=== PATIENT | male | born 1955 | race Caucasian/White ===

== ENCOUNTER → 2016-11-13 | Outpatient (CLI) | payer MEDICARE | LOC: WOUNDCARE 09:48 | PROVIDERS: ATTEND Internal Medicine | DX: E11.621 Type 2 diabetes mellitus with foot ulcer (principal); L97.522 Non-pressure chronic ulcer of other part of left foot with fat layer exposed | CPT/HCPCS: 11042; 87070; 87075; 87101; 87205 ==

== ENCOUNTER → 2016-11-20 | Outpatient (CLI) | payer MEDICARE | LOC: WOUNDCARE 07:59 | PROVIDERS: ATTEND Internal Medicine | DX: E11.621 Type 2 diabetes mellitus with foot ulcer (principal); L97.522 Non-pressure chronic ulcer of other part of left foot with fat layer exposed | CPT/HCPCS: 11042 ==

== ENCOUNTER → 2016-11-27 | Outpatient (CLI) | payer MEDICARE | LOC: WOUNDCARE 08:14 | PROVIDERS: ATTEND Internal Medicine | DX: E11.621 Type 2 diabetes mellitus with foot ulcer (principal); L97.522 Non-pressure chronic ulcer of other part of left foot with fat layer exposed | CPT/HCPCS: 99212 ==

== ENCOUNTER 2016-12-08 13:03 | Inpatient (IN) | payer OTHER, MEDICARE ==
[~2016-12-08] VITALS: Ht 180.3 cm; Wt 88.9 kg
[2016-12-08 17:08] VITALS: BP 166/85
[2016-12-08] MEDS ORDERED: INSU100I29 SQ (17:31)
[2016-12-08] MEDS ORDERED: DOXE150C PO (17:31)
[2016-12-08] MEDS ORDERED: HYDR-3820 PO (17:31)
[2016-12-08] MEDS ORDERED: TRAM50TA2 PO (17:31)
[2016-12-08] MEDS ORDERED: SIMV20TA3 PO (17:31)
[2016-12-08] MEDS ORDERED: PANT40TA3 PO (17:31)
[2016-12-08] MEDS ORDERED: METF500T4 PO (17:31)
[2016-12-08] MEDS: inSUlin ASPART (NovoLOG) 1 UNIT/0.01 ML (CHARGE PER UNIT) SC SCH (18:55)
[2016-12-08] MEDS: ALFUZOSIN HCL 10 MG TAB (UROXATRAL) PO SCH (18:57)
[2016-12-08] MEDS: metFORMIN 500 MG (GLUCOPHAGE) TAB PO SCH (18:57)
[2016-12-08] MEDS: PANTOPRAZOLE 40 MG (PROTONIX) TAB PO SCH (18:57)
[2016-12-08] MEDS: HYDROcodone/APAP 10 MG/325 MG (LORTAB) TAB PO PRN (18:59)
[2016-12-08] MEDS: METHOCARBAMOL 750 MG (ROBAXIN) TAB PO SCH (20:45)
[2016-12-08] MEDS: DOXEPIN 25 MG (SINEquan) CAP PO SCH (20:45)
[2016-12-08] MEDS ORDERED: inSUlin DETERMIR 1 UNIT/0.01 ML (LEVEMIR) CHARGE PER UNIT SQ SCH (21:00)
--- NOTE | 2016-12-09 03:47 | HISTORY AND PHYSICAL ---
DATE OF SERVICE: CHIEF COMPLAINT: Difficulty with walking. 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 He is now referred to inpatient rehabilitation unit for ongoing therapies. He presents to unit with his family. He lives in [place], [place] in a one-story home. PCP is [facility]. He reports his numbness has largely improved. He has standby assist for transfers, bed mobility, and ambulation at this point. He is utilizing hydrocodone/APAP for pain control. He is a diabetic and on insulin as well as metformin. He is on Protonix for GI prophylaxis, Robaxin for muscle spasms, Sinequan for insomnia and depression. He has been independent prior to this, but having increasing pain and numbness in his legs. PAST MEDICAL HISTORY: Diabetes mellitus. PAST SURGICAL HISTORY: As per above. ALLERGIES: No known medication allergies, although the patient reports he has increased confusion with MS Contin and OxyContin. FAMILY HISTORY: Noncontributory. SOCIAL HISTORY: Essentially as per above. REVIEW OF SYSTEMS: Ten-point review of systems significant for weakness, improved numbness in his legs. He was followed by wound care clinic here on an outpatient basis regarding an ulceration of a distal toe, which has healed. MEDICATIONS: Sinequan 100 mg p.o. each day at bedtime, Levemir insulin 80 units subcu each day at bedtime, Robaxin 750 mg p.o. q.i.d., Uroxatral 10 mg p.o. daily, hydrocodone/APAP 10/325 one tablet p.o. every 4 hours p.r.n. moderate pain, sliding scale insulin regimen A, metformin 500 mg p.o. t.i.d. with meals, and Protonix 40 mg p.o. b.i.d. PHYSICAL EXAMINATION: GENERAL APPEARANCE: Significant for a male appearing his stated age, lying in bed, in no acute distress. Alert and oriented. VITAL SIGNS: Blood pressure 166/85, respirations 20, and pulse 99. He is afebrile. O2 saturation 100% on room air. HEENT: Vision, speech, and hearing grossly intact. No oral lesion is noted. NECK: Supple without mass. HEART: Regular rhythm. LUNGS: Clear. ABDOMEN: Soft and nontender. Bowel sounds are present. EXTREMITIES: No limb edema. No calf tenderness. BACK: Incision site covered with dressing. MUSCULOSKELETAL: The patient has functional passive range of motion in all 4 extremities. NEUROLOGIC: Sensation is grossly intact to touch. Cognition is grossly intact. Strength is 5/5 in both upper limbs, 5/5 in both lower limbs at knee ext and ankle dorsiflexion .4+/5 bilateral knee flex - Indwelling schneider catheter to DD IMPRESSION: 1. Ambulatory dysfunction secondary to lumbar spinal stenosis, status post decompression. Spine surgery at [facility] on 12/02/2016. 2. Postop urinary retention with indwelling Schneider catheter at this time. 3. Insulin-dependent diabetes mellitus. PLAN: The patient will have a comprehensive program of inpatient rehabilitation with goal of maximizing level of functional independence prior to discharge home with family. The patient will have PT and OT 90 minutes per day each discipline, 5 days a week for 1 to 2 weeks for gait, strengthening, conditioning, balance, ADLs and any patient, family care, caregiver training as necessary, any adaptive equipment and training as necessary. Speech therapy to do cognitive assessment and treat as indicated. Rehabilitation Nursing to assist with bowel, Schneider catheter care, pain management, wound care, skin care, and medication administration. behavioral services tech to assist with discharge planning and community re-entry. Follow up with [facility] healthcare provider for postop care and dabetic management as needed. Follow up with his surgeon on an outpatient basis. This is a worker's comp case and he has been approved for admission by a worker's comp provider, Falguni Dalton.F/u re another trial of voiding. ESTIMATED LENGTH OF STAY: One week. PROGNOSIS: Rehab prognosis appears good. GOALS: Discharging home with family, modified independence, supervision for mobility and ADL skills. DIET: Carb consistent. CODE STATUS: Full code. Monitor Taliau-Gabby q.i.d., a.c. and at . initially. Job ID: [id number] DocumentID: [id number] Dictated Date: 12/08/2016 20:48:14 Outpatient Interviewing Clerk Date: 12/09/2016 02:08:41 Dictated By: PRACHI AMADOR MD [facility]
[2016-12-09 05:57] VITALS: BP 160/80
[2016-12-09] MEDS: inSUlin ASPART (NovoLOG) 1 UNIT/0.01 ML (CHARGE PER UNIT) SC SCH ×2 (06:12→16:11)
[2016-12-09] MEDS: PANTOPRAZOLE 40 MG (PROTONIX) TAB PO SCH ×2 (06:30→16:11)
[2016-12-09] MEDS: metFORMIN 500 MG (GLUCOPHAGE) TAB PO SCH ×3 (06:30→17:15)
[2016-12-09 07:07] LABS: BASOPHILS % (AUTO) 0 % (0-10); EOSINOPHILS # (AUTO) 0.2 10^3/uL (0.0-0.3); EOSINOPHILS % (AUTO) 2 % (0-10); LYMPHOCYTES # (AUTO) 1.4 X 10^3 (1.0-4.0); LYMPHOCYTES % (AUTO) 12 % (12-44); MEAN CORPUSCULAR HEMOGLOBIN 31 PG (25-34); MEAN CORPUSCULAR HGB CONC 34 G/DL (32-36); MEAN CORPUSCULAR VOLUME 92 FL (80-99); MEAN PLATELET VOLUME 10.5 FL (7.4-10.4); MONOCYTES # (AUTO) 1.3 X 10^3 (0.0-1.0); MONOCYTES % (AUTO) 12 % (0-12); NEUTROPHILS # (AUTO) 8.4 X 10^3 (1.8-7.8); NEUTROPHILS % (AUTO) 74 % (42-75); PLATELET COUNT 243 10^3/uL (130-400); RED BLOOD COUNT 3.78 10^6/uL (4.35-5.85); RED CELL DISTRIBUTION WIDTH 12.3 % (10.0-14.5); WHITE BLOOD COUNT 11.3 10^3/uL (4.3-11.0)
[2016-12-09 07:28] LABS: ALANINE AMINOTRANSFERASE 94 U/L (0-55); ALBUMIN 3.7 GM/DL (3.2-4.5); ANION GAP 12 MMOL/L (5-14); ASPARTATE AMINO TRANSFERASE 73 U/L (5-34); BAND NEUTROPHILS 6 %; BASOPHILS % (MANUAL) 0 %; BILIRUBIN,TOTAL 1.1 MG/DL (0.1-1.0); BLOOD UREA NITROGEN 11 MG/DL (7-18); BUN/CREATININE RATIO 16; CALCIUM 9.5 MG/DL (8.5-10.1); CARBON DIOXIDE 23 MMOL/L (21-32); CHLORIDE 99 MMOL/L (98-107); EOSINOPHILS % (MANUAL) 2 %; GFR ESTIMATED > 60; GLUCOSE 103 MG/DL (70-105); LYMPHOCYTES % (MANUAL) 19 %; MYELOCYTES % 1 %; NEUTROPHILS % (MANUAL) 59 %; POTASSIUM 3.4 MMOL/L (3.6-5.0); SODIUM 134 MMOL/L (135-145); TOTAL PROTEIN 7.4 GM/DL (6.4-8.2)
[2016-12-09] MEDS: METHOCARBAMOL 750 MG (ROBAXIN) TAB PO SCH ×4 (08:17→19:19)
[2016-12-09] MEDS: HYDROcodone/APAP 10 MG/325 MG (LORTAB) TAB PO PRN ×2 (08:17→17:16)
--- NOTE | 2016-12-09 09:02 | Physical Therapy Evaluation ---
PT Evaluation-General Medical Diagnosis Admission Date Dec 08, 2016 at 16:45 Medical Diagnosis: Lumbar spine surgery for lumbar stenosis Onset Date: Dec 02, 2016 Therapy Diagnosis Therapy Diagnosis: functional mobility impairments and weakness Height/Weight Height (Feet): 5 Height (Inches): 11.00 Weight (Pounds): 196 Weight (Ounces): 0.0 Precautions Precautions/Isolations: Fall Prevention, Standard Precautions Referral Physician: Duarte Reason for Referral: Evaluation/Treatment Medical History Pertinent Medical History: DM Current History Pt underwent lumbar spine surgery for lumbar stenosis on 12/02/16 for worsening back pain and numbness and tingling in legs. Pt admitted to rehab 12/09 to increase functional mobility and independence. Reviewed History: Yes Social History Home: Single Level Current Living Status: Alone Entry Into Home: Ramp PT Steps Into Home: 0 PT Steps Inside Home: 0 Prior/Core FIM Prior Level of Function Functional [place] Measure 0=Not Assessed/NA 4=Minimal Assistance 1=Total Assistance 5=Supervision or Setup 2=Maximal Assistance 6=Modified [place] 3=Moderate Assistance 7=Complete [place] Bed Mobility: 7 Transfers (B,C,W/C) (FIM): 7 Gait: 7 Locomotion: 7 Pt was driving short distances prior to surgery, used no assistive device. PT Evaluation-Current Subjective Pt was lying in bed prior to tx and agreeable to PT. Pt reports pain throughout back, and pt received pain medications at beginning of tx. Pt was sitting in chair with nurse call, phone, all needs met, post tx. Pain Numeric Pain Scale: 8 Location Body Site: Back Pain Description: Ache Pt/Family Goals to be independent at home Objective Patient Orientation: Normal For Age Attachments: Matta Catheter ROM/Strength ROM Lower Extremities WFL Strength Upper Extremities Network Operations Specialist strength 5/5, WFL throughout UE bilaterally. Strenght Lower Extremities Right LE (ankle dorsiflexion 5/5, knee extension 5/5, knee flexion 4+/5) Left LE (ankle dorsiflexion 5/5, knee extension 5/5, knee flexion 4+/5) Integumentary/Posture Integumentary refer to nursing note Bowel Incontinence: No Bladder Incontinence: Matta Cath Neuromuscular (Tone, Coordination, Reflexes) Not tested Sensory Vision: Functional Hearing: Functional Sensation Right Upper Extremit: Intact Sensation Left Upper Extremity: Intact Sensation Right Lower Extremit: Intact Sensation Left Lower Extremity: Intact Sensation Lower Extremities Patient has no complaints of numbness or tingling. Transfers Functional [place] Measure 0=Not Assessed/NA 4=Minimal Assistance 1=Total Assistance 5=Supervision or Setup 2=Maximal Assistance 6=Modified [place] 3=Moderate Assistance 7=Complete IndependenceIRFPAI Quality Coding Scale 6 Independent with activity with or without an assistive device 5 Patient requires set up or clean up by helper. Patient completes activity by themselves 4 Supervision or touching assist (CGA). [place] provide cues , steadying assist 3 The helper provides less than half the effort to complete the activity 2 The helper provides more than half the effort to complete the activity 1 Dependent. The helper does all the effort to complete an activity 7 Patient refused to complete or attempt activity 9 The patient did not perform the activity before the current illness or injury 88 Not attempted due to Medical conditions or safety concerns Transfers (B, C, W/C) (FIM): 3 Scootin Rollin Roll Left to Right (QC): 4 Supine to/from Sit: 5 Sit to/from Stand: 3 Sit to Lying (QC): 4 Lying to Sitting/Side of Bed(Q: 4 Sit to Stand (QC): 3 Chair/Naf-bk-Zzaws Xfer(QC): 3 Pt completes bed mobility with supervision, moves slowly due to pain, but is able to perform bed mobility by himself. Pt requires min-mod assist with sit<> stand transfer, requires more assistance with standing, but does well lowering himself slowly into chair with sitting. Pt requires verbal cues for hand placement and safety. Gait Does the Patient Walk?: Yes Mode of Locomotion: Walk Anticipated Mode of Locomotion: Walk Gait (FIM): 4 Distance (FIM): 3=150 ft Walk 10 feet (QC): 4 Walk 50 ft with 2 Turns(QC): 4 Walk 150 ft (QC): 4 Walking 10ft/uneven surface-QC: 88 (not tested due to pain and unsteadiness) Distance: 150' Gait Level of Assist: 4 Gait Persons Needed: 1 Gait Assistive Device: FWW Comments/Gait Description Pt ambulates 150' with FWW and close CGA. Pt ambulates slowly, and is unsteady throughout gait training. Wheelchair Training Does the Pt Use a Wheelchair?: No Stairs Stairs (FIM): 1 #of Steps: 1 Level of Assist: 4 1 Step (curb) (QC): 4 4 Steps (QC): 88 (not tested due to pt pain and safety) Assistive Device: Walker 12 Steps (QC): 88 (not tested due to pt pain and safety) Pt completed 1 step with FWW. Pt was unsteady with step and required min assist for safety. Balance Sitting Static: Good Sitting Dynamic: Good Standing Static: Poor Standing Dynamic: Poor Treatment Pt completed exercises in standing bar x 20 (hip flexion/extension/abduction, marching, side steps, unilateral stance) for LE functional strengthening. Assessment/Needs Pt has decreased safety endurance, activity tolerance, bed mobility, transfers, gait, and balance. Rehab Potential: Good PT Short Term Goals Short Term Goals Time Frame: Dec 16, 2016 Transfers (B,C,W/C) (FIM): 4 Gait (FIM): 5 Distance (FIM): 3=150 ft Gait Distance Comment: 250' Gait Assistive Device: FWW PT Healthcare Translator Goals Residential Goals PT Residential Goals Time Frame: Dec 30, 2016 Transfers (B,C,W/C) (FIM): 5 Sit to Lying (QC): 6 Lying-Sitting on Side/Bed(QC): 6 Sit to Stand (QC): 4 Rollin Roll Left to Right (QC): 6 Car Transfer (QC): 4 Does the Patient Walk: Yes Gait (FIM): 6 Gait distance (FIM): 3=150 ft Distance: 500' Walk 10 feet (QC): 6 Walk 10ft-Uneven Surface(QC): 4 Walk 50ft with 2 Turns (QC): 6 Walk 150 ft (QC): 6 Gait Assistive Device: FWW Stairs (FIM): 4 # of Steps: 12 1 Step (curb) (QC): 4 4 Steps (QC): 4 Stairs Level Of Assist: 4 PT Plan Problem List Problem List: Activity Tolerance, Functional Strength, Safety, Balance, Gait, Transfer, Bed Mobility Treatment/Plan Treatment Plan: Continue Plan of Care Treatment Plan: Bed Mobility, Concurrent Therapy, Education, Functional Activity Javier, Functional Strength, Group Therapy, Gait, Safety, Therapeutic Exercise, Transfers Treatment Duration: Dec 30, 2016 Frequency: At least 5 of 7 days/Wk (IRF) Estimated Hrs Per Day: 1.5 hours per day Patient and/or Family Agrees t: Yes Safety Risks/Education Patient Education: Gait Training, Transfer Techniques, Steps, Correct Positioning, Disease Process, Safety Issues Teaching Recipient: Patient Teaching Methods: Demonstration, Discussion Response to Teaching: Reinforcement Needed Discharge Recommendations Plan Patient will perform bed mobility and transfer training, balance and endurance training, functional strengthening, gait training, stair training, and education , to improve functional mobility and independence at home. Therapy D/C Recommendations: Home w/ Family Support Time/GCodes Time In: 800 Time Out: 900 Total Billed Treatment Time: 60 Total Billed Treatment 1 visit EVL 15' EX 15' FA 15' GT 15' OG LEA PT Dec 09, 2016 09:02
--- NOTE | 2016-12-09 11:49 | PM&R Post Admission Assessment ---
Post Admission Physician Asses The preadmission screen agrees with the post admission assessment that the patient is a good candidate for inpatient rehabilitation. The patient will have a comprehensive program of inpatient rehabilitation with a goal of maximizing level of functional independence prior to discharge home with spouse. The patient will have PT/OT ninety minutes per day, each discipline, five days a week for gait, strengthening, conditioning, balance, ADLs, any patient/family/caregiver training as necessary. Speech therapy to do cognitive assessment and treat as indicated. Rehabilitation nursing to assist with bowel, bladder, Matta catheter care, skin, wound care, medication administration, pain management. Gerentological Physiotherapist to assist with discharge planning, community reentry. SCD's for DVT prophylaxis. He appears to be well motivated to participate in three hours of therapy a day. He should be able to tolerate three hours of therapy a day from a medical and surgical standpoint. He should benefit from the three hours of therapy a day. He has a reasonable discharge plan, reasonable discharge rehabilitation goals and a supportive family. He has various comorbidities that need to be closely monitored with medications and treatments adjusted on a daily basis as needed. These include: Postop urinary retention DM Dysuria Barriers to discharge for this patient who had been independent prior to this are for him to be modified independent to supervision for ADLs and mobility skills prior to discharge home with spouse, so as to lessen the burden of the caregivers. Risks for this patient include: 1. Fall 2. Fracture 3. DVT 4. Pulmonary embolism 5. Wound infection 6. Skin breakdown 7. Contractures 8. Poorly controlled pain 9. RecurrentUrinary retention 10. UTI 11. Respiratory infection 12. Aspiration 13. Poorly controlled DM Estimated Length of Stay: 5-10-pyrotxef Prognosis: Rehab prognosis appears good for goal of discharge home with spouse modified independent to supervision for ADLs and mobility skills. PRACHI AMADOR MD Dec 09, 2016 11:49
--- NOTE | 2016-12-09 11:57 | PM & R (SOAP) Progress Note ---
Subjective Time Seen by Provider: 08:05 Subjective/Events-last exam Patient was seen in his room this AM Discussed case with TANYA hua this AM [facility] has decreased HS Insulin Patient c/o dysuria with Matta catheter -U/A ordered Labs noted LFTS elevated Hepatitis Panel and liver U /S ordered Serum K borderline low One dose of K ordered..Patient adjusting well to unit Patient min assist for transfers. Review of Systems Genitourinary: Dysuria Musculoskeletal: back pain Objective Exam Last Set of Vital Signs Vital Signs Date Time Temp Pulse Resp B/P (MAP) Pulse Ox O2 Delivery O2 Flow Rate FiO2 12/09/16 08:36 Room Air 12/09/16 05:57 98.5 94 18 160/80 98 Capillary Refill : Less Than 3 Seconds I&O Intake and Output 12/10/16 00:00 Intake Total 1000 ml Output Total 1150 ml Balance -150 ml Intake Oral 1000 ml Output Urine Total 1150 ml General: Alert, Oriented X3, Cooperative, No Acute Distress HEENT: Atraumatic, PERRLA, EOMI, Mucous Memb Moist/[place] Neck: Supple, No JVD Lungs: Clear to Auscultation Heart: Regular Rate Abdomen: Normal Bowel Sounds, Soft, No Tenderness Extremities: No Edema Neuro: Other (Strength 5/5 except bilateral knee flex 4+/5 Sensation grossly intact to touch) Other physical findings Matta to DD Results Lab Laboratory Tests 12/08/16 17:33: Glucometer 118H 12/09/16 05:26: Glucometer 46*L 12/09/16 05:52: Glucometer 56*L 12/09/16 06:27: Glucometer 75 12/09/16 06:52: White Blood Count 11.3H, Red Blood Count 3.78L, Hemoglobin 11.7L, Hematocrit 35L , Mean Corpuscular Volume 92, Mean Corpuscular Hemoglobin 31, Mean Corpuscular Hemoglobin Concent 34, Red Cell Distribution Width 12.3, Platelet Count 243, Mean Platelet Volume 10.5H, Neutrophils (%) (Auto) 74, Lymphocytes (%) (Auto) 12 , Monocytes (%) (Auto) 12, Eosinophils (%) (Auto) 2, Basophils (%) (Auto) 0, Neutrophils # (Auto) 8.4H, Lymphocytes # (Auto) 1.4, Monocytes # (Auto) 1.3H, Eosinophils # (Auto) 0.2, Basophils # (Auto) 0.0, Neutrophils % (Manual) 59, Lymphocytes % (Manual) 19, Monocytes % (Manual) 13, Eosinophils % (Manual) 2, Basophils % (Manual) 0, Metamyelocytes % , Myelocytes % 1, Band Neutrophils 6, Blood Morphology Comment NORMAL, Sodium Level 134L, Potassium Level 3.4L, Chloride Level 99, Carbon Dioxide Level 23, Anion Gap 12, Blood Urea Nitrogen 11 , Creatinine 0.70, Estimat Glomerular Filtration Rate > 60, BUN/Creatinine Ratio 16, Glucose Level 103, Calcium Level 9.5, Total Bilirubin 1.1H, Aspartate Amino Transf (AST/SGOT) 73H, Alanine Aminotransferase (ALT/SGPT) 94H, Alkaline Phosphatase 151H, Total Protein 7.4, Albumin 3.7 12/09/16 10:57: Glucometer 144H Assessment/Plan Assessment S/P lumbar spine surgery for lumbar spine stenosis OSH work related Postop urinary retention with dysuria U/A ordered Elevated LFTS Hepatitis pael and liver U/S ordered IDDM with episode of hypoglycemia HS insulin adjusted Borderline Hypokalemia-one dose of K replacement ordered. Plan Continue PT/OT ST to assess F/U with DR Lorenzana et al re Abnormal labs and DM management Check U/A Team Conference tomorrow 12/10/16 PRACHI AMADOR MD Dec 09, 2016 11:57
[2016-12-09 11:59] LABS: KETONES,URINE 1+ (NEGATIVE); LEUKOCYTE ESTERASE ,URINE 3+ (NEGATIVE); NITRITE,URINE POSITIVE (NEGATIVE); PH,URINE 5 (5-9); PROTEIN,URINE 3+ (NEGATIVE); UROBILINOGEN,URINE 4 MG/DL (NORMAL)
[2016-12-09] MEDS ORDERED: KCL 20 MEQ TAB (K-DUR) PO NR (12:00)
[2016-12-09 12:08] LABS: BILIRUBIN,URINE 1+ (NEGATIVE); SQUAMOUS EPITHELIAL CELL,UR RARE /HPF; WBC,URINE >100 /HPF
--- NOTE | 2016-12-09 12:56 | Diagnostic Imaging Report ---
EXAMINATION: Ultrasound of the liver. INDICATION: Elevated liver enzymes. FINDINGS: The pancreas appears unremarkable. The liver is fairly homogeneous with no focal lesion. There is hepatopetal flow seen in the portal vein. The CBD is 4 mm in caliber. The gallbladder demonstrates no stones or wall thickening. The right kidney is 12.7 cm in length with no hydronephrosis or focal lesion. No ascites or fluid collection is seen in the upper right abdomen. The sonographic Grey sign is reportedly negative. IMPRESSION: Unremarkable exam. Dictated by: Dictated on workstation # [id number]
--- NOTE | 2016-12-09 12:57 | Occupational Therapy Eval ---
OT Evaluation-General/PLF Medical Diagnosis Admission Date Dec 08, 2016 at 16:45 Medical Diagnosis: Lumbar spine surgery for lumbar stenosis Onset Date: Dec 02, 2016 Therapy Diagnosis Therapy Diagnosis: decreased self care skills Height/Weight Height (Feet): 5 Height (Inches): 11.00 Weight (Pounds): 196 Weight (Ounces): 0.0 Precautions Precautions/Isolations: Fall Prevention, Standard Precautions Safety Interventions: None Referral Physician: Duarte Medical History Pertinent Medical History: DM, GERD Additional Medical History sleep apnea, hyperlipidemia, bilateral carpal tunnel repair Current History L4-5 posterior lateral fusion, L4-5 bilateral laminectomy Social History Home: Single Level Current Living Status: Spouse Entry Into Home: Ramp Steps Into Home: 0 Steps Inside Home: 0 Pt states there will always be someone at home with him ADL-Prior Level of Function ADL PLOF Comments Pt states he was independent with ADLs and transfers. Spouse had been supervising showers recently secondary to decreased balance. Was not using any assistive devices for mobility DME/Equipment: Tub/Shower Pt states he should be getting a shower bench, FWW, and grab bars at d/c. Drive Self: Yes OT Current Status Subjective Pt sitting in chair, agrees to treatment. Would like to shower today. Pt reports 3/10 back pain. Mental Status/Objective Patient Orientation: Person, Place, Time, Situation Attachments: Matta Catheter Current Glasses/Contacts: No Hearing Aids: No Dentures/Partials: No Hand Dominance: Right Upper Extremity ROM Grossly WFL Upper Extremity Coordination Grossly WFL ADL-Treatment ADL-Current Pt sitting in chair, requests shower this morning. Sit to stand from chair with moderate assistance and cues for technique. Gait to restroom with FWW. Pt transferred to shower with minimal assistance using FWW. Doff shirt with SBA, required minimal assistance to doff shorts and manage Matta. Pt completed seated shower with increased time. Pt able to wash upper body with set up. Washes upper legs and brendon area with SBA. Pt unable to wash bilateral lower legs secondary to back precautions, but is able to wash with long handled sponge. Pt required mod assist to stand and wash buttocks. Mod assist required to transfer out of shower. RN was present to change dressing on back. Don pullover shirt with set up. Assist required to start pants over feet and to thread catheter. Stood with moderate assistance for pant hike. Pt fatigued with activity and required occasional rest breaks and increased time for functional tasks. Pt brushed hair and brushed teeth with set up while seated in chair. Pt requests to return to bed after session. Sit to supine with assist for LE. Pt in bed with needs met after session. Functional Walker Measure 0=Not Assessed/NA 4=Minimal Assistance 1=Total Assistance 5=Supervision or Setup 2=Maximal Assistance 6=Modified Walker 3=Moderate Assistance 7=Complete IndependenceIRFPAI Quality Coding Scale 6 Independent with activity with or without an assistive device 5 Patient requires set up or clean up by helper. Patient completes activity by themselves 4 Supervision or touching assist (CGA). [place] provide cues , steadying assist 3 The helper provides less than half the effort to complete the activity 2 The helper provides more than half the effort to complete the activity 1 Dependent. The helper does all the effort to complete an activity 7 Patient refused to complete or attempt activity 9 The patient did not perform the activity before the current illness or injury 88 Not attempted due to Medical conditions or safety concerns Eating (FIM): 7 (Pt reports feeding self, cutting food, and managing containers without assistance) Eating (QC): 6 Grooming (FIM): 5 Oral Hygiene (QC): 5 Bathing (FIM): 3 Shower/Bathe Self (QC): 3 Upper Body Dressing (FIM): 5 Upper Body Dressing (QC): 5 Lower Body Dressing (FIM): 3 Lower Body Dressing (QC): 3 Shower Transfer (FIM): 3 Education OT Patient Education: Rehab process Teaching Recipient: Patient Teaching Methods: Discussion Response to Teaching: Verbalize Understanding OT Short Term Goals Short Term Goals Time Frame: Dec 16, 2016 Bathing(FIM): 4 Lower Body Dressing(FIM): 4 Toileting(FIM): 4 Toilet/Commode Transfer(FIM): 5 Shower Transfer(FIM): 4 Additional Short Term Goals: 1-Demonstrate ADL Tasks, 2-Verbalize Understanding , 3-ImproveStrength/Javier 1=Demonstrate adherence to instructed precautions during ADL tasks. 2=Patient will verbalize/demonstrate understanding of assistive devices/ modifications for ADL. 3=Patient will improve strength/tolerance for activity to enable patient to perform ADL's. OT School Health Aide Goals School Health Aide Goals Time Frame: Dec 30, 2016 Eating (FIM): 7 Eating (QC): 6 Groomin Oral Hygiene (QC): 6 Bathing(FIM): 5 Shower/Bathe Self (QC): 5 Upper Body Dressing(FIM): 6 Upper Body Dressing (QC): 6 Lower Body Dressing(FIM): 5 Lower Body Dressing (QC): 5 On/Off Footwear (QC): 6 Toileting(FIM): 6 Toileting Hygiene (QC): 6 Toilet/Commode Transfer(FIM): 6 Toilet/Commode Transfer (QC): 6 Shower Transfer(FIM): 5 Additional Goals: 1-Demonstrate ADL Tasks, 2-Verbalize Understanding, 3- ImproveStrength/Javier 1=Demonstrate adherence to instructed precautions during ADL tasks. 2=Patient will verbalize/demonstrate understanding of assistive devices/ modifications for ADL. 3=Patient will improve strength/tolerance for activity to enable patient to perform ADL's. OT Education/Plan Problem List/Assessment Assessment: Decreased Activ Tolerance, Decreased UE Strength, Dependent Transfers, Impaired Self-Care Skills Pt s/p lumbar surgery with decreased mobility, ADL functioning, strength, and activity tolerance. Pt to benefit from skilled OT intervention for ADL training , transfers, strengthening, and home safety education to maximize level of function and allow safe discharge home. Discharge Recommendations Plan/Recommendations: Continue POC Treatment Plan/Plan of Care Treatment,Training & Education: Yes Patient would benefit from OT for education, treatment and training to promote independence in ADL's, mobility, safety and/or upper extremity function for ADL' s. Plan of Care: ADL Retraining, Functional Mobility, Group Exercise/Act as Ind, UE Funct Exercise/Act Treatment Duration: Dec 30, 2016 Frequency: At least 5 of 7 days/Wk (IRF) Estimated Hrs Per Day: 1.5 hours per day Agreement: Yes Rehab Potential: Good Time/GCodes Start Time: 09:30 Stop Time: 11:00 Total Time Billed (hr/min): 90 Billed Treatment Time 1 visit, EVL(15minutes), ADLx5(75minutes) AMAYA KHAN OT Dec 09, 2016 12:57
--- NOTE | 2016-12-09 14:40 | Physical Therapy Daily Note ---
PT Daily Note-Current Subjective Pt was in bed prior to tx, and agreeable to PT. Pt reports not being able to get comfortable in bed and did not sleep well last night. Pt reports 8/10 pain in back. Pt was lying in bed with nurse call, phone, all needs in reach post tx. Pain Numeric Pain Scale: 8 Location Body Site: Back Pain Description: Ache Mental Status Patient Orientation: Normal For Age Attachments: Matta Catheter Transfers Functional [place] Measure 0=Not Assessed/NA 4=Minimal Assistance 1=Total Assistance 5=Supervision or Setup 2=Maximal Assistance 6=Modified [place] 3=Moderate Assistance 7=Complete IndependenceIRFPAI Quality Coding Scale 6 Independent with activity with or without an assistive device 5 Patient requires set up or clean up by helper. Patient completes activity by themselves 4 Supervision or touching assist (CGA). [place] provide cues , steadying assist 3 The helper provides less than half the effort to complete the activity 2 The helper provides more than half the effort to complete the activity 1 Dependent. The helper does all the effort to complete an activity 7 Patient refused to complete or attempt activity 9 The patient did not perform the activity before the current illness or injury 88 Not attempted due to Medical conditions or safety concerns Transfers (B, C, W/C) (FIM): 3 Supine to/from Sit: 4 Sit to/from Stand: 3 Pt completes sit<>stand with min-mod assist and verbal cues for safety. Pt completes sit<>supine with min assist and very slowly due to pain. Gait Training Does the Patient Walk?: Yes Gait (FIM): 4 Distance (FIM): 3=150 ft Distance: 75', 150' Gait Level of Assist: 4 Gait Persons Needed: 1 Gait Assistive Device: FWW Pt ambulates with FWW and close CGA for safety with antalgic and unsteady gait. Exercises Seated Therapy Exercises: Ankle pumps, Long arc quads, Hip flexion, Hamstring Curls, Hip abd/add Seated Reps: 20 Treatments Pt completes seated exercises with theraband for resistance to increase LE strength. Pt completes gait training to increase functional mobility and independence. Assessment Current Status: Good Progress Pt has mobility impairments with gait and bed mobility, pain is the primary limiting factor with mobility. PT Short Term Goals Short Term Goals Time Frame: Dec 16, 2016 Gait (FIM): 5 Distance (FIM): 3=150 ft Gait Distance Comment: 250' Gait Assistive Device: FWW PT Usp Goals Usp Goals PT [place] House Supervisor Goals Time Frame: Dec 30, 2016 Transfers (B,C,W/C) (FIM): 5 Sit to Lying (QC): 6 Lying-Sitting on Side/Bed(QC): 6 Sit to Stand (QC): 4 Rollin Roll Left to Right (QC): 6 Car Transfer (QC): 4 Does the Patient Walk: Yes Gait (FIM): 6 Gait distance (FIM): 3=150 ft Distance: 500' Walk 10 feet (QC): 6 Walk 10ft-Uneven Surface(QC): 4 Walk 50ft with 2 Turns (QC): 6 Walk 150 ft (QC): 6 Gait Assistive Device: FWW Stairs (FIM): 4 # of Steps: 12 1 Step (curb) (QC): 4 4 Steps (QC): 4 Stairs Level Of Assist: 4 PT Plan Problem List Problem List: Activity Tolerance, Functional Strength, Safety, Balance, Gait, Transfer, Bed Mobility, ROM Treatment/Plan Treatment Plan: Continue Plan of Care Treatment Plan: Bed Mobility, Concurrent Therapy, Education, Functional Activity Javier, Functional Strength, Group Therapy, Gait, Safety, Therapeutic Exercise, Transfers Treatment Duration: Dec 30, 2016 Frequency: At least 5 of 7 days/Wk (IRF) Estimated Hrs Per Day: 1.5 hours per day Patient and/or Family Agrees t: Yes Safety Risks/Education Patient Education: Gait Training, Transfer Techniques, Reviewed Precautions, Correct Positioning, Safety Issues Teaching Recipient: Patient Teaching Methods: Demonstration, Discussion Response to Teaching: Verbalize Understanding, Reinforcement Needed Time/GCodes Time In: 1400 Time Out: 1430 Total Billed Treatment Time: 30 Total Billed Treatment 1 visit 15 GT 15 EX OG LEA PT Dec 09, 2016 14:40
[2016-12-09 17:02] VITALS: BP 164/79
[2016-12-09] MEDS ORDERED: CATHETER FLUSH 10 ML SYR IV PRN (17:15)
[2016-12-09] MEDS: ALFUZOSIN HCL 10 MG TAB (UROXATRAL) PO SCH (17:15)
--- NOTE | 2016-12-09 17:19 | Consultation (CHS) ---
HPI History of Present Illness: 61 yo male admitted to rehab after lumbar laminectomy and fusion complicated by urinary retention. His main concern at this time is burning with urination even though catheter is still in. He states he had problems with urinating even before surgery but was able to sometimes with position changes, etc. After surgery, he had retention, straight cath was done and then he had retention again so catheter was replaced. He has been having chills and sweats at night. He otherwise has no concerns. Source: patient Date seen by provider: Dec 09, 2016 Time Seen by Provider: 11:00 Attending Physician Arash Ramachandran MD PCP Neptali Mcgregor MD Consult Date of Admission Dec 08, 2016 at 4:45 pm Home Medications Home Medications Reviewed patient Home Medication Reconciliation Form Allergies Coded Allergies: No Known Allergies (Verified Allergy, Unknown, 12/08/16) [id number] Hx Patient Social History Alcohol Use: Denies Use Recreational Drug Use: No Smoking Status: Never a Smoker Recent Foreign Travel: No Contact w/other who traveled: No Recent Hopitalizations: Yes (LAMINECTOMY AND FUSION) Recent Infectious Disease Expo: No Physical Abuse Screen: No Sexual Abuse: No Past Medical History PMHx: DMII HLD GERD PSurgHx: Carpal tunnel release Vasectomy Lumbar laminectomy and fusion Family Medical History Significant Family History: Cancer, Diabetes Family History: Review of Systems ([facility]) Constitutional: chills EENTM: no symptoms reported Respiratory: No cough, No short of breath Cardiovascular: No chest pain Gastrointestinal: No abdominal pain, No constipation, No diarrhea, No nausea, No vomiting Genitourinary: see HPI Musculoskeletal: back pain Skin: no symptoms reported Psychiatric/Neurological: No Symptoms Reported Reviewed Test Results Reviewed Test Results Lab Laboratory Tests Test 12/08/16 17:33 12/09/16 05:26 12/09/16 05:52 12/09/16 06:27 Range/Units Glucometer 118 H 46 *L 56 *L 75 70-110 MG/DL Test 12/09/16 06:52 12/09/16 10:57 12/09/16 11:52 12/09/16 12:03 Range/Units White Blood Count 11.3 H 4.3-11.0 10^3/uL Red Blood Count 3.78 L 4.35-5.85 10^6/uL Hemoglobin 11.7 L 13.3-17.7 G/DL Hematocrit 35 L 40-54 % Mean Corpuscular Volume 92 80-99 FL Mean Corpuscular Hemoglobin 31 25-34 PG Mean Corpuscular Hemoglobin Concent 34 32-36 G/DL Red Cell Distribution Width 12.3 10.0-14.5 % Platelet Count 243 130-400 10^3/uL Mean Platelet Volume 10.5 H 7.4-10.4 FL Neutrophils (%) (Auto) 74 42-75 % Lymphocytes (%) (Auto) 12 12-44 % Monocytes (%) (Auto) 12 0-12 % Eosinophils (%) (Auto) 2 0-10 % Basophils (%) (Auto) 0 0-10 % Neutrophils # (Auto) 8.4 H 1.8-7.8 X 10^3 Lymphocytes # (Auto) 1.4 1.0-4.0 X 10^3 Monocytes # (Auto) 1.3 H 0.0-1.0 X 10^3 Eosinophils # (Auto) 0.2 0.0-0.3 10^3/uL Basophils # (Auto) 0.0 0.0-0.1 10^3/uL Neutrophils % (Manual) 59 % Lymphocytes % (Manual) 19 % Monocytes % (Manual) 13 % Eosinophils % (Manual) 2 % Basophils % (Manual) 0 % Metamyelocytes % % Myelocytes % 1 % Band Neutrophils 6 % Blood Morphology Comment NORMAL Sodium Level 134 L 135-145 MMOL/L Potassium Level 3.4 L 3.6-5.0 MMOL/L Chloride Level 99 98-107 MMOL/L Carbon Dioxide Level 23 21-32 MMOL/L Anion Gap 12 5-14 MMOL/L Blood Urea Nitrogen 11 7-18 MG/DL Creatinine 0.70 0.60-1.30 MG/DL Estimat Glomerular Filtration Rate > 60 BUN/Creatinine Ratio 16 Glucose Level 103 70-105 MG/DL Calcium Level 9.5 8.5-10.1 MG/DL Total Bilirubin 1.1 H 0.1-1.0 MG/DL Aspartate Amino Transf (AST/SGOT) 73 H 5-34 U/L Alanine Aminotransferase (ALT/SGPT) 94 H 0-55 U/L Alkaline Phosphatase 151 H 40-136 U/L Total Protein 7.4 6.4-8.2 GM/DL Albumin 3.7 3.2-4.5 GM/DL Glucometer 144 H 70-110 MG/DL Urine Color YELLOW Urine Clarity VERY CLOUDY H Urine pH 5 5-9 Urine Specific [place] 1.020 1.016-1.022 Urine Protein 3+ H NEGATIVE Urine Glucose (UA) 3+ H NEGATIVE Urine Ketones 1+ H NEGATIVE Urine Nitrite POSITIVE H NEGATIVE Urine Bilirubin 1+ H NEGATIVE Urine Urobilinogen 4 H NORMAL MG/DL Urine Leukocyte Esterase 3+ H NEGATIVE Urine RBC (Auto) 5+ H NEGATIVE Urine RBC 10-25 H /HPF Urine WBC >100 H /HPF Urine Squamous Epithelial Cells RARE /HPF Urine Crystals NONE /LPF Urine Bacteria LARGE H /HPF Urine Casts NONE /LPF Urine Mucus MODERATE H /LPF Urine Culture Indicated YES Test 12/09/16 16:03 Range/Units Glucometer 191 H 70-110 MG/DL Physical Exam-([facility]) Physical Exam Vital Signs VS - Last 72 Hours, by Label 12/08/16 12/08/16 12/09/16 12/09/16 17:02 17:08 05:57 08:36 Temp 98.6 98.5 Pulse 99 94 Resp 20 18 B/P (MAP) 166/85 160/80 Pulse Ox 100 100 98 O2 Delivery Room Air Room Air Room Air Room Air 12/09/16 17:02 Temp 102.1 Pulse 103 Resp 18 B/P (MAP) 164/79 Pulse Ox 97 O2 Delivery Room Air Capillary Refill : Less Than 3 Seconds General Appearance: WD/WN, no apparent distress Respiratory: lungs clear, normal breath sounds Cardiovascular: regular rate, rhythm, no edema, no murmur Gastrointestinal: normal bowel sounds, non tender, soft Neurologic/Psychiatric: alert, normal mood/affect Skin: normal color, warm/dry Assessment/Plan Assessment/Plan Admission Dx s/p lumbar laminectomy and fusion DMII HLD Elevated LFTs Leukocytosis Urinary retention with indwelling schneider Plan s/p lumbar laminectomy and fusion- managed by inpatient rehab and [place] surgeon DMII- resume home medications, diabetic diet. Decreased home insulin to 40 units levemir for tonight given low blood sugar this am and reports he is eating less than usual HLD- hold home statin due to elevated LFTs Elevated LFTs- unknown etiology and apparently new, check hepatitis panel and liver US Leukocytosis- currently afebrile and with normal vital signs, possibly post- operative reaction, monitor Urinary retention with indwelling schneider- on alfuzosin, now with dysuria, check UA Diagnosis/Problems: Clinical Quality Measures DVT/VTE Risk/Contraindication: Risk Factor Score Per Nursin RFS Level Per Nursing on Admit: 4+=Very High JULISSA VU MD Dec 09, 2016 5:19 pm
[2016-12-09 18:00] LABS: BASOPHILS % (AUTO) 0 % (0-10); EOSINOPHILS # (AUTO) 0.2 10^3/uL (0.0-0.3); EOSINOPHILS % (AUTO) 2 % (0-10); LYMPHOCYTES # (AUTO) 1.9 X 10^3 (1.0-4.0); LYMPHOCYTES % (AUTO) 15 % (12-44); MEAN CORPUSCULAR HEMOGLOBIN 31 PG (25-34); MEAN CORPUSCULAR HGB CONC 33 G/DL (32-36); MEAN CORPUSCULAR VOLUME 93 FL (80-99); MEAN PLATELET VOLUME 10.9 FL (7.4-10.4); MONOCYTES # (AUTO) 1.6 X 10^3 (0.0-1.0); MONOCYTES % (AUTO) 12 % (0-12); NEUTROPHILS # (AUTO) 9.3 X 10^3 (1.8-7.8); NEUTROPHILS % (AUTO) 71 % (42-75); PLATELET COUNT 264 10^3/uL (130-400); RED BLOOD COUNT 3.67 10^6/uL (4.35-5.85); RED CELL DISTRIBUTION WIDTH 12.5 % (10.0-14.5); WHITE BLOOD COUNT 13.1 10^3/uL (4.3-11.0)
[2016-12-09 18:13] VITALS: BP 150/73
[2016-12-09] MEDS: cefTRIAXone INJECTION 1,000 MG in NS (IVPB) 50 ML IV SCH (18:28)
[2016-12-09] MEDS ORDERED: IBUPROFEN 600 MG (MOTRIN) TAB PO PRN (18:45)
[2016-12-09] MEDS: NS IV 1000 ML 1,000 ML IV SCH ×2 (18:59→23:19)
[2016-12-09] MEDS: CATHETER FLUSH 10 ML SYR IV SCH (19:11)
[2016-12-09] MEDS: DOXEPIN 25 MG (SINEquan) CAP PO SCH (19:19)
[2016-12-09] MEDS: inSUlin DETERMIR 1 UNIT/0.01 ML (LEVEMIR) CHARGE PER UNIT SQ SCH (19:20)
[2016-12-10 00:49] LABS: BASOPHILS % (AUTO) 0 % (0-10); EOSINOPHILS # (AUTO) 0.3 10^3/uL (0.0-0.3); EOSINOPHILS % (AUTO) 3 % (0-10); LYMPHOCYTES % (AUTO) 19 % (12-44); MEAN CORPUSCULAR HEMOGLOBIN 31 PG (25-34); MEAN CORPUSCULAR HGB CONC 33 G/DL (32-36); MEAN CORPUSCULAR VOLUME 93 FL (80-99); MONOCYTES # (AUTO) 1.4 X 10^3 (0.0-1.0); MONOCYTES % (AUTO) 14 % (0-12); NEUTROPHILS # (AUTO) 6.8 X 10^3 (1.8-7.8); NEUTROPHILS % (AUTO) 64 % (42-75); PLATELET COUNT 235 10^3/uL (130-400); RED CELL DISTRIBUTION WIDTH 12.4 % (10.0-14.5); WHITE BLOOD COUNT 10.6 10^3/uL (4.3-11.0)
[2016-12-10 01:13] LABS: ALANINE AMINOTRANSFERASE 83 U/L (0-55); ALBUMIN 3.1 GM/DL (3.2-4.5); ANION GAP 9 MMOL/L (5-14); ASPARTATE AMINO TRANSFERASE 62 U/L (5-34); BILIRUBIN,TOTAL 0.8 MG/DL (0.1-1.0); BLOOD UREA NITROGEN 12 MG/DL (7-18); BUN/CREATININE RATIO 16; CALCIUM 8.4 MG/DL (8.5-10.1); CARBON DIOXIDE 22 MMOL/L (21-32); CHLORIDE 106 MMOL/L (98-107); CREATININE SERUM 0.74 MG/DL (0.60-1.30); GFR ESTIMATED > 60; GLUCOSE 206 MG/DL (70-105); POTASSIUM 3.8 MMOL/L (3.6-5.0); SODIUM 137 MMOL/L (135-145); TOTAL PROTEIN 6.4 GM/DL (6.4-8.2)
[2016-12-10] MEDS: NS IV 1000 ML 1,000 ML IV SCH ×4 (02:47→13:20)
[2016-12-10 05:10] VITALS: BP 163/76
[2016-12-10] MEDS: CATHETER FLUSH 10 ML SYR IV SCH ×3 (05:46→20:04)
[2016-12-10] MEDS: metFORMIN 500 MG (GLUCOPHAGE) TAB PO SCH ×3 (05:50→17:03)
[2016-12-10] MEDS: PANTOPRAZOLE 40 MG (PROTONIX) TAB PO SCH ×2 (05:50→17:03)
[2016-12-10] MEDS: inSUlin ASPART (NovoLOG) 1 UNIT/0.01 ML (CHARGE PER UNIT) SC SCH ×2 (05:51→17:02)
--- NOTE | 2016-12-10 08:56 | Physical Therapy Daily Note ---
PT Daily Note-Current Subjective Pt. states he has trouble with the hours here of first responder. States he was always a night owl. States he had trouble sleeping b/c he had IV last night. States his back pain is 2/10, but his incision is sensitive Pain Numeric Pain Scale: 2 Location: Lower Location Body Site: Back Pain Description: Burning Mental Status Patient Orientation: Normal For Age Transfers Functional [place] Measure 0=Not Assessed/NA 4=Minimal Assistance 1=Total Assistance 5=Supervision or Setup 2=Maximal Assistance 6=Modified [place] 3=Moderate Assistance 7=Complete IndependenceIRFPAI Quality Coding Scale 6 Independent with activity with or without an assistive device 5 Patient requires set up or clean up by helper. Patient completes activity by themselves 4 Supervision or touching assist (CGA). [place] provide cues , steadying assist 3 The helper provides less than half the effort to complete the activity 2 The helper provides more than half the effort to complete the activity 1 Dependent. The helper does all the effort to complete an activity 7 Patient refused to complete or attempt activity 9 The patient did not perform the activity before the current illness or injury 88 Not attempted due to Medical conditions or safety concerns Transfers (B, C, W/C) (FIM): 3 Scootin Rollin Supine to/from Sit: 5 Sit to/from Stand: 3 pt. TRFs sit to stand from very high surfaces CGA and uses FWW to pull himself up, but standard heights require mod to max assist Gait Training Does the Patient Walk?: Yes Gait (FIM): 4 Distance (FIM): 3=150 ft Gait Level of Assist: 4 Gait Persons Needed: 1 Gait Assistive Device: FWW heavy wt bearing on FWW, toe out narrow DAVID at heels, knees slightly bent. Exercises Seated Therapy Exercises: Ankle pumps, Sit to stand, Long arc quads, Hip flexion Seated Reps: 15 (sit to stand perches from high low challenging pt. to stand at levels just challenging enough) Standing: Hip Abduction, Hamstring curls, Heel/toe raises, Marching, Side steps Standing Reps: 15 Treatments pt. unable to tolerate Nustep or supine therex. Pt. did TRF sit to R side but was unable to roll to back or left side secondary to pain. Pt. was educated in use of recline chair brandon for head,trunk portion back and how to get comfortable in chair and that sitting will improve pts health and strength Assessment Current Status: Good Progress PT Short Term Goals Short Term Goals Time Frame: Dec 16, 2016 Gait (FIM): 5 Distance (FIM): 3=150 ft Gait Distance Comment: 250' Gait Assistive Device: FWW PT Batch Trucker Goals Batch Trucker Goals PT Batch Trucker Goals Time Frame: Dec 30, 2016 Transfers (B,C,W/C) (FIM): 5 Sit to Lying (QC): 6 Lying-Sitting on Side/Bed(QC): 6 Sit to Stand (QC): 4 Rollin Roll Left to Right (QC): 6 Car Transfer (QC): 4 Does the Patient Walk: Yes Gait (FIM): 6 Gait distance (FIM): 3=150 ft Distance: 500' Walk 10 feet (QC): 6 Walk 10ft-Uneven Surface(QC): 4 Walk 50ft with 2 Turns (QC): 6 Walk 150 ft (QC): 6 Gait Assistive Device: FWW Stairs (FIM): 4 # of Steps: 12 1 Step (curb) (QC): 4 4 Steps (QC): 4 Stairs Level Of Assist: 4 PT Plan Treatment/Plan Treatment Plan: Continue Plan of Care Treatment Plan: Bed Mobility, Concurrent Therapy, Education, Functional Activity Javier, Functional Strength, Group Therapy, Gait, Safety, Therapeutic Exercise, Transfers Treatment Duration: Dec 30, 2016 Frequency: At least 5 of 7 days/Wk (IRF) Estimated Hrs Per Day: 1.5 hours per day Patient and/or Family Agrees t: Yes Safety Risks/Education Patient Education: Gait Training, Transfer Techniques, Correct Positioning, Disease Process, Safety Issues Teaching Recipient: Patient, Primary Caregiver Teaching Methods: Discussion Response to Teaching: Verbalize Understanding, Return Demonstration, Reinforcement Needed Time/GCodes Time In: 800 Time Out: 900 Total Billed Treatment Time: 60 Total Billed Treatment 1,FA20m, EX25m,GT15m CRISTIAN NIELSEN SIGNALS ANALYST Dec 10, 2016 08:56
[2016-12-10] MEDS: METHOCARBAMOL 750 MG (ROBAXIN) TAB PO SCH ×4 (09:24→20:01)
--- NOTE | 2016-12-10 09:28 | ST Cognitive Linguistic Eval ---
Speech Evaluation-General Medical Diagnosis Lumbar spine surgery for lumbar stenosis Onset Date: Dec 02, 2016 Therapy Diagnosis Therapy Diagnosis: Cognitive Linguistic Skills WNL Precautions Precautions/Isolations: Fall Prevention, Standard Precautions Referral Referring Physician: Dr. Arash Ramachandran Reason for Referral: Evaluation/Treatment Cognitive Linguistic Evaluation Medical History Pertinent Medical History: DM, GERD Reviewed History: Yes Social History Current Living Status: Spouse Speech PLF-Current Status Prior Level of Function The patient denied prior challenges with speech, language, or cognition. Subjective The patient was recently admitted to [facility] following lumbar spine surgery. The patient greeted the clinician appropriately and was agreeable to participation in the cognitive evaluation. Pain Numeric Pain Scale: 2 Location Body Site: Hip Comment: The patient did not describe the pain for the clinician. Language Eval: Auditory Comprehends Simple Yes/No Ques: Functional Indent/Objects Multiple [place]: Functional Ident/Pics in Multiple [place]: Functional Follows 1-Step Commands: Functional Follows Complex Directions: Functional Follows General Conversations: Functional Language Eval: Verbal Language Completes Spontaneous Greeting: Functional Produces Auto, Serial Info: Functional Imitates Simple Words/Phrases: Functional Word Finding: Functional Requests Basic Needs: Functional States Basic Personal Info: Functional Expresses Complex Ideas: Functional Cognitive Patient Orientation The patient was independently oriented to month, day of week, date, and year. Objective Cognitive Domain Attention: WNL Memory: WNL Problem Solving: Functional Executive Functions: WNL Objective Impression The patient displayed cognitive linguistic skills within normal limits and appropriate for completion of ADL's. Communication/Social Cognition Comprehension: 6 Expression: 6 Social Interaction: 6 Problem Solvin Memory: 6 Speech Patient Assess Expression of Ideas/Wants: Expression (4) Understanding [place] Content: Understands (4) Brief Interview-Mental Status: Yes Repetition of Three Words: Three (3) Temporal Orientation: Year: Correct (3) Temporal Orientation: Month: Accurate within 5 days(2) Temporal Orientation: Day: Correct (1) Recall : Wear to say "Sock": Yes, no cue required (2) Recall : Color: Yes, no cue required (2) Recall : Bed: Yes,after cueing (1) Speech-Plan Treatment Plan Speech Therapy Treatment Plan: Discontinue ST Evaluation, only. Frequency: Modified Program (IRF) (Evaluation, only.) Estimated Hrs Per Day: Other (Evaluation, only.) Rehab Potential: Good Safety Risks/Education Teaching Recipient: Patient Teaching Methods: Discussion Response to Teaching: Verbalize Understanding Education Topics Provided: Results, Plan of Care, Recommendations Time Speech Therapy Time In: 09:00 Speech Therapy Time Out: 09:15 Total Billed Time: 15 Billed Treatment Time 1, JONES AGUIRRE Dec 10, 2016 09:27
--- NOTE | 2016-12-10 10:19 | PM & R (SOAP) Progress Note ---
Subjective Time Seen by Provider: 08:05 Subjective/Events-last exam Patient was seen in his room this AM Patient min assist for transfers and gait with FWW Patient voiding with [place] out patient with fever spike associated with elevated Lactic acid and UTI Patient on IV antibiotics.Hepatitis B screen Negative. Objective Exam Last Set of Vital Signs Vital Signs Date Time Temp Pulse Resp B/P (MAP) Pulse Ox O2 Delivery O2 Flow Rate FiO2 12/10/16 05:10 100.0 106 18 163/76 98 Room Air Capillary Refill : Less Than 3 Seconds I&O Intake and Output 12/11/16 00:00 Intake Total 2100 ml Output Total 2500 ml Balance -400 ml Intake Oral 1100 ml IV Total 1000 ml Output Urine Total 2500 ml General: Alert, Oriented X3, Cooperative, No Acute Distress HEENT: Atraumatic, PERRLA, EOMI, Mucous Memb Moist/[place] Neck: Supple, No JVD Lungs: Clear to Auscultation Heart: Regular Rate Abdomen: Normal Bowel Sounds, Soft, No Tenderness Extremities: No Edema Neuro: Other (Strength 5/5 except bilateral knee flex 4+/5 Sensation grossly intact to touch) Results Lab Laboratory Tests 12/08/16 17:33: Glucometer 118H 12/09/16 05:26: Glucometer 46*L 12/09/16 05:52: Glucometer 56*L 12/09/16 06:27: Glucometer 75 12/09/16 06:52: White Blood Count 11.3H, Red Blood Count 3.78L, Hemoglobin 11.7L, Hematocrit 35L , Mean Corpuscular Volume 92, Mean Corpuscular Hemoglobin 31, Mean Corpuscular Hemoglobin Concent 34, Red Cell Distribution Width 12.3, Platelet Count 243, Mean Platelet Volume 10.5H, Neutrophils (%) (Auto) 74, Lymphocytes (%) (Auto) 12 , Monocytes (%) (Auto) 12, Eosinophils (%) (Auto) 2, Basophils (%) (Auto) 0, Neutrophils # (Auto) 8.4H, Lymphocytes # (Auto) 1.4, Monocytes # (Auto) 1.3H, Eosinophils # (Auto) 0.2, Basophils # (Auto) 0.0, Neutrophils % (Manual) 59, Lymphocytes % (Manual) 19, Monocytes % (Manual) 13, Eosinophils % (Manual) 2, Basophils % (Manual) 0, Metamyelocytes % , Myelocytes % 1, Band Neutrophils 6, Blood Morphology Comment NORMAL, Sodium Level 134L, Potassium Level 3.4L, Chloride Level 99, Carbon Dioxide Level 23, Anion Gap 12, Blood Urea Nitrogen 11 , Creatinine 0.70, Estimat Glomerular Filtration Rate > 60, BUN/Creatinine Ratio 16, Glucose Level 103, Calcium Level 9.5, Total Bilirubin 1.1H, Aspartate Amino Transf (AST/SGOT) 73H, Alanine Aminotransferase (ALT/SGPT) 94H, Alkaline Phosphatase 151H, Total Protein 7.4, Albumin 3.7 12/09/16 10:57: Glucometer 144H 12/09/16 11:52: Urine Color YELLOW, Urine Clarity VERY CLOUDYH, Urine pH 5, Urine Specific [place] 1.020, Urine Protein 3+H, Urine Glucose (UA) 3+H, Urine Ketones 1+H, Urine Nitrite POSITIVEH, Urine Bilirubin 1+H, Urine Urobilinogen 4H, Urine Leukocyte Esterase 3+H, Urine RBC (Auto) 5+H, Urine RBC 10-25H, Urine WBC >100H , Urine Squamous Epithelial Cells RARE, Urine Crystals NONE, Urine Bacteria LARGEH, Urine Casts NONE, Urine Mucus MODERATEH, Urine Culture Indicated YES 12/09/16 12:03: Hepatitis A IgM Antibody Non-Reactive, Hepatitis B Surface Antigen Non-Reactive , Hepatitis B Core IgM Antibody Non-Reactive, Hepatitis C Antibody Non-Reactive 12/09/16 16:03: Glucometer 191H 12/09/16 17:25: White Blood Count 13.1H, Red Blood Count 3.67L, Hemoglobin 11.3L, Hematocrit 34L , Mean Corpuscular Volume 93, Mean Corpuscular Hemoglobin 31, Mean Corpuscular Hemoglobin Concent 33, Red Cell Distribution Width 12.5, Platelet Count 264, Mean Platelet Volume 10.9H, Neutrophils (%) (Auto) 71, Lymphocytes (%) (Auto) 15 , Monocytes (%) (Auto) 12, Eosinophils (%) (Auto) 2, Basophils (%) (Auto) 0, Neutrophils # (Auto) 9.3H, Lymphocytes # (Auto) 1.9, Monocytes # (Auto) 1.6H, Eosinophils # (Auto) 0.2, Basophils # (Auto) 0.0, Lactic Acid Level 3.16*H 12/09/16 19:40: Lactic Acid Level 2.27*H 12/09/16 22:20: Lactic Acid Level 2.17*H 12/10/16 00:42: White Blood Count 10.6, Red Blood Count 3.40L, Hemoglobin 10.5L, Hematocrit 32L , Mean Corpuscular Volume 93, Mean Corpuscular Hemoglobin 31, Mean Corpuscular Hemoglobin Concent 33, Red Cell Distribution Width 12.4, Platelet Count 235, Mean Platelet Volume 10.0, Neutrophils (%) (Auto) 64, Lymphocytes (%) (Auto) 19 , Monocytes (%) (Auto) 14H, Eosinophils (%) (Auto) 3, Basophils (%) (Auto) 0, Neutrophils # (Auto) 6.8, Lymphocytes # (Auto) 2.0, Monocytes # (Auto) 1.4H, Eosinophils # (Auto) 0.3, Basophils # (Auto) 0.0, Sodium Level 137, Potassium Level 3.8, Chloride Level 106, Carbon Dioxide Level 22, Anion Gap 9, Blood Urea Nitrogen 12, Creatinine 0.74, Estimat Glomerular Filtration Rate > 60, BUN/ Creatinine Ratio 16, Glucose Level 206H, Lactic Acid Level 2.80*H, Calcium Level 8.4L, Total Bilirubin 0.8, Aspartate Amino Transf (AST/SGOT) 62H, Alanine Aminotransferase (ALT/SGPT) 83H, Alkaline Phosphatase 132, Total Protein 6.4, Albumin 3.1L 12/10/16 05:50: Glucometer 91 12/10/16 05:52: Lactic Acid Level 1.45 Microbiology 12/09/16 Urine Culture - Preliminary, Resulted Gram Negative [place] Assessment/Plan Assessment S/P lumbar spine surgery for lumbar spine stenosis OSH work related UTI on iv antibiotics Elevated LFTS Hepatitis panel and liver U/S ordered-negative IDDM with episode of hypoglycemia HS insulin adjusted Borderline Hypokalemia-one dose of K replacement ordered-done. Plan Continue PT/OT ST to assess F/U with DR Lorenzana et al re Abnormal labs and DM management and UTI/ fever Team Conference later today 12/10/16-See report for full functional update and POC and PRACHI CHOWDHURY MD Dec 10, 2016 10:19
[2016-12-10] MEDS: HYDROcodone/APAP 10 MG/325 MG (LORTAB) TAB PO PRN (12:06)
--- NOTE | 2016-12-10 13:09 | Occupational Ther Daily Note ---
OT Current Status-Daily Note Subjective Pt sitting in chair, agrees to treatment. Pt reports 2/10 back pain. Mental Status/Objective Functional [place] Measure 0=Not Assessed/NA 4=Minimal Assistance 1=Total Assistance 5=Supervision or Setup 2=Maximal Assistance 6=Modified [place] 3=Moderate Assistance 7=Complete [place] ADL-Treatment Pt requests to shower this morning. Sit to stand from chair with CGA. Gait to restroom with FWW. Pt demonstrated ability to perform transfer to BS over toilet with minimal assistance. Transfer to shower bench in walk in shower with minimal assistance. Pt used sales operations analyst to doff socks and shorts. Upper body bathing completed with set up. Pt able to wash lower body using long handled sponge for lower feet and legs. Assist to wash buttocks. RN present to change dressing after shower. Don pullover shirt with set up. Pt used sales operations analyst to start shorts over feet. Stood with minimal assistance for pant hike. Assist required to don FINN hose. Pt stood at sink for grooming tasks. Pt brushed teeth and combed hair with SBA while standing. Pt requested to return to bed after session. Sit to supine with minimal assistance. Pt in bed with needs met and spouse present after session. Functional [place] Measure 0=Not Assessed/NA 4=Minimal Assistance 1=Total Assistance 5=Supervision or Setup 2=Maximal Assistance 6=Modified [place] 3=Moderate Assistance 7=Complete IndependenceIRFPAI Quality Coding Scale 6 Independent with activity with or without an assistive device 5 Patient requires set up or clean up by helper. Patient completes activity by themselves 4 Supervision or touching assist (CGA). [place] provide cues , steadying assist 3 The helper provides less than half the effort to complete the activity 2 The helper provides more than half the effort to complete the activity 1 Dependent. The helper does all the effort to complete an activity 7 Patient refused to complete or attempt activity 9 The patient did not perform the activity before the current illness or injury 88 Not attempted due to Medical conditions or safety concerns Grooming (FIM): 5 Oral Hygiene (QC): 4 Bathing (FIM): 4 Shower/Bathe Self (QC): 3 Upper Body (FIM): 5 Upper Body Dressing (QC): 5 Lower Body Dressing (FIM): 4 Lower Body Dressing (QC): 3 On/Off Footwear (QC): 3 Toilet/Commode Transfer (FIM): 4 Shower Transfer(FIM): 4 Education OT Patient Education: Modified ADL techniques Teaching Recipient: Patient Teaching Methods: Discussion Response to Teaching: Verbalize Understanding OT Short Term Goals Short Term Goals Time Frame: Dec 16, 2016 Bathing(FIM): 4 Lower Body Dressing(FIM): 4 Toileting(FIM): 4 Toilet/Commode Transfer(FIM): 5 Shower Transfer(FIM): 4 Additional Short Term Goals: 1-Demonstrate ADL Tasks, 2-Verbalize Understanding , 3-ImproveStrength/Javier 1=Demonstrate adherence to instructed precautions during ADL tasks. 2=Patient will verbalize/demonstrate understanding of assistive devices/ modifications for ADL. 3=Patient will improve strength/tolerance for activity to enable patient to perform ADL's. OT Assisted Goals Orchid Transplanter Goals Time Frame: Dec 30, 2016 Eating (FIM): 7 Eating (QC): 6 Groomin Oral Hygiene (QC): 6 Bathing(FIM): 5 Shower/Bathe Self (QC): 5 Upper Body Dressing(FIM): 6 Upper Body Dressing (QC): 6 Lower Body Dressing(FIM): 5 Lower Body Dressing (QC): 5 On/Off Footwear (QC): 6 Toileting(FIM): 6 Toileting Hygiene (QC): 6 Toilet/Commode Transfer(FIM): 6 Toilet/Commode Transfer (QC): 6 Shower Transfer(FIM): 5 Additional Goals: 1-Demonstrate ADL Tasks, 2-Verbalize Understanding, 3- ImproveStrength/Javier 1=Demonstrate adherence to instructed precautions during ADL tasks. 2=Patient will verbalize/demonstrate understanding of assistive devices/ modifications for ADL. 3=Patient will improve strength/tolerance for activity to enable patient to perform ADL's. OT Education/Plan Problem List/Assessment Pt s/p lumbar surgery with decreased mobility, ADL functioning, strength, and activity tolerance. Pt to benefit from skilled OT intervention for ADL training , transfers, strengthening, and home safety education to maximize level of function and allow safe discharge home. Discharge Recommendations Plan/Recommendations: Continue POC Treatment Plan/Plan of Care Patient would benefit from OT for education, treatment and training to promote independence in ADL's, mobility, safety and/or upper extremity function for ADL' s. Plan of Care: ADL Retraining, Functional Mobility, Group Exercise/Act as Ind, UE Funct Exercise/Act Treatment Duration: Dec 30, 2016 Frequency: At least 5 of 7 days/Wk (IRF) Estimated Hrs Per Day: 1.5 hours per day Agreement: Yes Rehab Potential: Good Time/GCodes Start Time: 09:15 Stop Time: 10:15 Total Time Billed (hr/min): 60 Billed Treatment Time 1 visit, ADLx4(60minutes) AMAYA KHAN OT Dec 10, 2016 13:09
--- NOTE | 2016-12-10 13:12 | Occupational Ther Daily Note ---
OT Current Status-Daily Note Subjective Pt in bed, agrees to treatment. Mental Status/Objective Functional [place] Measure 0=Not Assessed/NA 4=Minimal Assistance 1=Total Assistance 5=Supervision or Setup 2=Maximal Assistance 6=Modified [place] 3=Moderate Assistance 7=Complete [place] ADL-Treatment Pt supine to sit with SBA and increased time. Pt donned robe with set up. Transfer to [facility] over toilet with minimal assistance. Pt able to pull pants down and complete hygiene, but requires minimal assistance for standing balance during pant hike. Stood at sink to wash hands with SBA. Gait to shower room with FWW. Pt states he will be getting a transfer bench when he goes home. Education provided regarding safe transfers into tub/shower using bench. Pt demonstrated ability to perform transfer with minimal assistance and verbal cues. Pt returned to room and transferred to recliner chair with minimal assistance. Pt sitting in chair with needs met after session. Functional [place] Measure 0=Not Assessed/NA 4=Minimal Assistance 1=Total Assistance 5=Supervision or Setup 2=Maximal Assistance 6=Modified [place] 3=Moderate Assistance 7=Complete IndependenceIRFPAI Quality Coding Scale 6 Independent with activity with or without an assistive device 5 Patient requires set up or clean up by helper. Patient completes activity by themselves 4 Supervision or touching assist (CGA). [place] provide cues , steadying assist 3 The helper provides less than half the effort to complete the activity 2 The helper provides more than half the effort to complete the activity 1 Dependent. The helper does all the effort to complete an activity 7 Patient refused to complete or attempt activity 9 The patient did not perform the activity before the current illness or injury 88 Not attempted due to Medical conditions or safety concerns Toileting (FIM): 4 Toileting Hygiene (QC): 3 Toilet/Commode Transfer (FIM): 4 Toilet Transfer (QC): 3 Education OT Patient Education: Transfer techniques Teaching Recipient: Patient Teaching Methods: Demonstration, Discussion Response to Teaching: Verbalize Understanding OT Short Term Goals Short Term Goals Time Frame: Dec 16, 2016 Bathing(FIM): 4 Lower Body Dressing(FIM): 4 Toileting(FIM): 4 Toilet/Commode Transfer(FIM): 5 Shower Transfer(FIM): 4 Additional Short Term Goals: 1-Demonstrate ADL Tasks, 2-Verbalize Understanding , 3-ImproveStrength/Javier 1=Demonstrate adherence to instructed precautions during ADL tasks. 2=Patient will verbalize/demonstrate understanding of assistive devices/ modifications for ADL. 3=Patient will improve strength/tolerance for activity to enable patient to perform ADL's. OT Central Lab Technician Goals Shelter Goals Time Frame: Dec 30, 2016 Eating (FIM): 7 Eating (QC): 6 Groomin Oral Hygiene (QC): 6 Bathing(FIM): 5 Shower/Bathe Self (QC): 5 Upper Body Dressing(FIM): 6 Upper Body Dressing (QC): 6 Lower Body Dressing(FIM): 5 Lower Body Dressing (QC): 5 On/Off Footwear (QC): 6 Toileting(FIM): 6 Toileting Hygiene (QC): 6 Toilet/Commode Transfer(FIM): 6 Toilet/Commode Transfer (QC): 6 Shower Transfer(FIM): 5 Additional Goals: 1-Demonstrate ADL Tasks, 2-Verbalize Understanding, 3- ImproveStrength/[place] 1=Demonstrate adherence to instructed precautions during ADL tasks. 2=Patient will verbalize/demonstrate understanding of assistive devices/ modifications for ADL. 3=Patient will improve strength/tolerance for activity to enable patient to perform ADL's. OT Education/Plan Problem List/Assessment Pt s/p lumbar surgery with decreased mobility, ADL functioning, strength, and activity tolerance. Pt to benefit from skilled OT intervention for ADL training , transfers, strengthening, and home safety education to maximize level of function and allow safe discharge home. Discharge Recommendations Plan/Recommendations: Continue POC Treatment Plan/Plan of Care Patient would benefit from OT for education, treatment and training to promote independence in ADL's, mobility, safety and/or upper extremity function for ADL' s. Plan of Care: ADL Retraining, Functional Mobility, Group Exercise/Act as Ind, UE Funct Exercise/Act Treatment Duration: Dec 30, 2016 Frequency: At least 5 of 7 days/Wk (IRF) Estimated Hrs Per Day: 1.5 hours per day Agreement: Yes Rehab Potential: Good Time/GCodes Start Time: 11:30 Stop Time: 12:00 Total Time Billed (hr/min): 30 Billed Treatment Time 1 visit, ADLx2(30minutes) AMAYA KHAN OT Dec 10, 2016 13:12
--- NOTE | 2016-12-10 13:23 | Physical Therapy Daily Note ---
PT Daily Note-Current Subjective Pt. and present. Pt. and both state they are ready for him to come home. Pt. states he has a very gentle incline ramp inside his garage. states pt. has a very high/tall bed. Pt. c/o he is very fatigued and his back pain is escalating after a bathroom trip just earlier Pain Numeric Pain Scale: 4 Location: Lower Location Body Site: Back Pain Description: Ache Mental Status Patient Orientation: Normal For Age Transfers Functional [place] Measure 0=Not Assessed/NA 4=Minimal Assistance 1=Total Assistance 5=Supervision or Setup 2=Maximal Assistance 6=Modified [place] 3=Moderate Assistance 7=Complete IndependenceIRFPAI Quality Coding Scale 6 Independent with activity with or without an assistive device 5 Patient requires set up or clean up by helper. Patient completes activity by themselves 4 Supervision or touching assist (CGA). [place] provide cues , steadying assist 3 The helper provides less than half the effort to complete the activity 2 The helper provides more than half the effort to complete the activity 1 Dependent. The helper does all the effort to complete an activity 7 Patient refused to complete or attempt activity 9 The patient did not perform the activity before the current illness or injury 88 Not attempted due to Medical conditions or safety concerns sup to sit to right simulating pts. situation at home all SBA PT Short Term Goals Short Term Goals Time Frame: Dec 16, 2016 Gait (FIM): 5 Distance (FIM): 3=150 ft Gait Distance Comment: 250' Gait Assistive Device: FWW PT Sales Representative Electric Service Goals Sales Representative Electric Service Goals PT Usp Goals Time Frame: Dec 30, 2016 Transfers (B,C,W/C) (FIM): 5 Sit to Lying (QC): 6 Lying-Sitting on Side/Bed(QC): 6 Sit to Stand (QC): 4 Rollin Roll Left to Right (QC): 6 Car Transfer (QC): 4 Does the Patient Walk: Yes Gait (FIM): 6 Gait distance (FIM): 3=150 ft Distance: 500' Walk 10 feet (QC): 6 Walk 10ft-Uneven Surface(QC): 4 Walk 50ft with 2 Turns (QC): 6 Walk 150 ft (QC): 6 Gait Assistive Device: FWW Stairs (FIM): 4 # of Steps: 12 1 Step (curb) (QC): 4 4 Steps (QC): 4 Stairs Level Of Assist: 4 PT Plan Treatment/Plan Treatment Plan: Continue Plan of Care Treatment Plan: Bed Mobility, Concurrent Therapy, Education, Functional Activity Javier, Functional Strength, Group Therapy, Gait, Safety, Therapeutic Exercise, Transfers Treatment Duration: Dec 30, 2016 Frequency: At least 5 of 7 days/Wk (IRF) Estimated Hrs Per Day: 1.5 hours per day Patient and/or Family Agrees t: Yes Time/GCodes Time In: 1300 Time Out: 1325 Total Billed Treatment Time: 25 Total Billed Treatment 1,FA10m,EX15m G Codes Necessary: CRISTIAN Stern PHOTOGRAPHIC MACHINE OPERATOR Dec 10, 2016 13:23
--- NOTE | 2016-12-10 14:02 | Progress Note (SOAP) ---
Subjective Subjective/Events-last exam Noted yesterday afternoon to be febrile, blood cultures drawn and labs updated which revealed lactic acidosis, resolved after two liters of NS bolus overnight. Remains febrile but with decreasing temperature. Able to urinate well after removal of catheter. Review of Systems Date Seen by Provider: Dec 10, 2016 Time Seen by Provider: 10:43 Objective Exam Last Set of Vital Signs Vital Signs Date Time Temp Pulse Resp B/P (MAP) Pulse Ox O2 Delivery O2 Flow Rate FiO2 12/10/16 09:00 Room Air 12/10/16 05:10 100.0 106 18 163/76 98 Capillary Refill : Less Than 3 Seconds I&O Intake and Output 12/11/16 00:00 Intake Total 2100 ml Output Total 2500 ml Balance -400 ml Intake Oral 1100 ml IV Total 1000 ml Output Urine Total 2500 ml General: Alert, No Acute Distress Lungs: Clear to Auscultation, Normal Air Movement Heart: Regular Rate, No Murmurs Neuro: Normal Speech Psych/Mental Status: Mood NL Results/Procedures Lab Laboratory Tests 12/09/16 16:03: Glucometer 191H 12/09/16 17:25: White Blood Count 13.1H, Red Blood Count 3.67L, Hemoglobin 11.3L, Hematocrit 34L , Mean Corpuscular Volume 93, Mean Corpuscular Hemoglobin 31, Mean Corpuscular Hemoglobin Concent 33, Red Cell Distribution Width 12.5, Platelet Count 264, Mean Platelet Volume 10.9H, Neutrophils (%) (Auto) 71, Lymphocytes (%) (Auto) 15 , Monocytes (%) (Auto) 12, Eosinophils (%) (Auto) 2, Basophils (%) (Auto) 0, Neutrophils # (Auto) 9.3H, Lymphocytes # (Auto) 1.9, Monocytes # (Auto) 1.6H, Eosinophils # (Auto) 0.2, Basophils # (Auto) 0.0, Lactic Acid Level 3.16*H 12/09/16 19:40: Lactic Acid Level 2.27*H 12/09/16 22:20: Lactic Acid Level 2.17*H 12/10/16 00:42: White Blood Count 10.6, Red Blood Count 3.40L, Hemoglobin 10.5L, Hematocrit 32L , Mean Corpuscular Volume 93, Mean Corpuscular Hemoglobin 31, Mean Corpuscular Hemoglobin Concent 33, Red Cell Distribution Width 12.4, Platelet Count 235, Mean Platelet Volume 10.0, Neutrophils (%) (Auto) 64, Lymphocytes (%) (Auto) 19 , Monocytes (%) (Auto) 14H, Eosinophils (%) (Auto) 3, Basophils (%) (Auto) 0, Neutrophils # (Auto) 6.8, Lymphocytes # (Auto) 2.0, Monocytes # (Auto) 1.4H, Eosinophils # (Auto) 0.3, Basophils # (Auto) 0.0, Sodium Level 137, Potassium Level 3.8, Chloride Level 106, Carbon Dioxide Level 22, Anion Gap 9, Blood Urea Nitrogen 12, Creatinine 0.74, Estimat Glomerular Filtration Rate > 60, BUN/ Creatinine Ratio 16, Glucose Level 206H, Lactic Acid Level 2.80*H, Calcium Level 8.4L, Total Bilirubin 0.8, Aspartate Amino Transf (AST/SGOT) 62H, Alanine Aminotransferase (ALT/SGPT) 83H, Alkaline Phosphatase 132, Total Protein 6.4, Albumin 3.1L 12/10/16 05:50: Glucometer 91 12/10/16 05:52: Lactic Acid Level 1.45 Microbiology 12/09/16 Urine Culture - Preliminary, Resulted Gram Negative [place] Assessment/Plan Assessment/Plan Admission Dx s/p lumbar laminectomy and fusion DMII HLD Elevated LFTs Leukocytosis Urinary retention with indwelling schneider Plan s/p lumbar laminectomy and fusion- managed by inpatient rehab and [facility] surgeon DMII- resume home medications, diabetic diet. Decreased home insulin to 40 units levemir given low blood sugar this am and reports he is eating less than usual HLD- hold home statin due to elevated LFTs Elevated LFTs- unknown etiology and apparently new, hepatitis panel negative and liver US unremarkable, monitor Leukocytosis- currently afebrile and with normal vital signs, possibly post- operative reaction, monitor Urinary retention with indwelling schneider- on alfuzosin, now with dysuria, check UA 12/10- removed catheter yesterday afternoon due to infection, able to urinate well so far, monitor closely UTI with sepsis- leukocytosis, fever and elevated lactic acid. Blood culture pending. Urine with gram negative gerson. Continue ceftriaxone. Lactic acidosis resolved with fluid overnight. Diagnosis/Problems: Clinical Quality Measures DVT/VTE Risk/Contraindication: Risk Factor Score Per Nursin RFS Level Per Nursing on Admit: 4+=Very High JULISSA VU MD Dec 10, 2016 2:02 pm
[2016-12-10] MEDS: MUPIROCIN 2% OINT 22 GM (BACTROBAN) TUBE TOP SCH ×2 (14:59→20:03)
--- NOTE | 2016-12-10 16:57 | Individualized Plan of Care ---
Individualized Plan of Care Rehab Nursing IPOC Order Admission Date Dec 08, 2016 at 16:45 Current Orders Orders Admission (Physician Order) (12/08/16 16:45) Admission Arrival Bed Request (12/08/16 16:45) Ambulate TID (12/08/16 16:57) Dvt/Vte Risk - Notifiy Physici (12/08/16 16:57) Admission-Acute Rehab Unit (12/08/16 16:52) Vital Signs: Routine 08,16,00 (12/08/16 16:52) Sequential Compression Device 08,20 (12/08/16 16:52) Insemination Worker-Inpt Rehab (12/08/16 16:52) Rehab Nursing Orders-Ipoc (12/08/16 16:52) Physical Therapy Rehab Orders (12/08/16 16:52) Occupational Therapy Rehab Ord (12/08/16 16:52) Speech Therapy Rehab Orders (12/08/16 16:52) Intake & Output 06,14,22 (12/08/16 16:52) Precautions (Aru) (12/08/16 16:52) Weekly Weight (Lbs) WEEK (12/08/16 16:52) Cbc With Automated Diff (12/09/16 06:00) Comprehensive Metabolic Panel (12/09/16 06:00) Consult Physician (12/08/16 17:00) Accucheck Bid DBID (12/08/16 17:02) Doxepin Capsule (Sinequan Capsule) (12/08/16 21:00) Hydrocodone/Apap 10/325 Tablet (Lortab 1 (12/08/16 17:15) Insulin Determir (Per Unit) (Levemir (Pe (12/08/16 21:00) Metformin Tablet (Glucophage Tablet) (12/08/16 17:14) Methocarbamol Tablet (Robaxin Tablet) (12/08/16 21:00) Pantoprazole Tablet (Protonix Tablet) (12/08/16 17:13) Alfuzosin Tablet (Uroxatral Tablet) (12/08/16 18:00) Insulin Aspart (Novolog) (Novolog (Charg (12/08/16 17:14) Cho 60g/M 1snack (16-2000 Pradeep) (12/08/16 Dinner) Manual Differential (12/09/16 06:52) Insulin Determir (Per Unit) (Levemir (Pe (12/09/16 21:00) Ua Culture If Indicated (12/09/16 11:54) Hepatitis Panel Acute (12/09/16 11:31) Us Hepatic (Liver)53254 (12/09/16 11:31) Potassium Chloride (Tablet) (K Dur Table (12/09/16 12:00) Urine Culture (12/09/16 11:52) Catheter(Urinary) Discontinue (12/09/16 13:48) Patient Visit (12/09/16 ) Pt Eval Low Complexity (12/09/16 ) Gait Training, Ea 15 Min (12/09/16 ) Exercise Therap, Ea 15 Min (12/09/16 ) Functional Activities, Ea 15 (12/09/16 ) Patient Visit (12/09/16 ) Exercise Therap, Ea 15 Min (12/09/16 ) Gait Training, Ea 15 Min (12/09/16 ) Cbc With Automated Diff (12/09/16 17:01) Lactic Acid Analyzer (12/09/16 17:01) Blood Culture (12/09/16 17:01) Blood Culture (12/09/16 17:05) Ceftriaxone Injection (Rocephin Injectio (12/09/16 17:15) Sodium Chloride Flush (Catheter Flush Sy (12/09/16 22:00) Sodium Chloride Flush (Catheter Flush Sy (12/09/16 17:15) Ns Iv 1000 Ml (Sodium Chloride 0.9%) (12/09/16 20:00) Ibuprofen Tablet (Motrin Tablet) (12/09/16 18:45) Lactic Acid Analyzer (12/09/16 21:40) Cbc With Automated Diff (12/10/16 06:00) Comprehensive Metabolic Panel (12/10/16 06:00) Lactic Acid Analyzer (12/10/16 05:00) Ns Iv 1000 Ml (Sodium Chloride 0.9%) (12/10/16 01:15) Patient Visit (12/10/16 ) Speech Sound Lang Comp (12/10/16 ) Mupirocin Ointment (Bactroban Ointment (12/10/16 11:15) Cbc With Automated Diff (12/11/16 06:00) Comprehensive Metabolic Panel (12/11/16 06:00) Patient Visit (12/10/16 ) Gait Training, Ea 15 Min (12/10/16 ) Functional Activities, Ea 15 (12/10/16 ) Exercise Therap, Ea 15 Min (12/10/16 ) Rehab Nursing Orders: Diseage Management, Edu in Press Rel Techn, Hydration Management, Nutrition Management, Pain Management Other Nursing Orders: Monitor for urinary retention or wosening signs or symptoms of current UTI Intensity of Therapy to be met Patient to be seen: Min.3h per day/5 of 7d PT IPOC Problem List: Activity Tolerance, Functional Strength, Safety, Balance, Gait, Transfer, Bed Mobility, ROM Treatment Plan: Continue Plan of Care Bed Mobility, Concurrent Therapy, Education, Functional Activity Javier, Functional Strength, Group Therapy, Gait, Safety, Therapeutic Exercise, Transfers Treatment Duration: Dec 30, 2016 Frequency: At least 5 of 7 days/Wk (IRF) Estimated Hrs Per Day: 1.5 hours per day OT IPOC Problems: Decreased Activ Tolerance, Decreased UE Strength, Dependent Transfers , Impaired Self-Care Skills OT Treatment, Training and Edu: Yes OT Problems Pt s/p lumbar surgery with decreased mobility, ADL functioning, strength, and activity tolerance. Pt to benefit from skilled OT intervention for ADL training , transfers, strengthening, and home safety education to maximize level of function and allow safe discharge home. Plan of Care: ADL Retraining, Functional Mobility, Group Exercise/Act as Ind, UE Funct Exercise/Act Treatment Duration: Dec 30, 2016 Frequency: At least 5 of 7 days/Wk (IRF) Estimated Hrs Per Day: 1.[address] IPOC Speech Therapy Treatment Plan: Discontinue ST Treatment Duration: Dec 09, 2016 Frequency: Modified Program (IRF) (Evaluation, only.) Estimated Hrs Per Day: Other (Evaluation, only.) Insemination Worker/Case Mgmt Insemination Worker/Case Managemen: Discharge Planning, Patient/Family Counseling Physician IPOC Medical Issues being managed closely and that require the 24 hour availability of a physician: UTI Urinary retention DM Medical Issues: Bowel/Bladder Function, DVT Prophylaxis, Falls Precautions, Fluid/Electrolyte/Nutrition Balance, Infection Protection, Pain Management, Wound Care, Other (List) (as per above) Brief Synthesis of Preadmission Screen, Post-Admission Evaluation, and Therapy Evaluations:61 yo male who had work related Lumbar spinal stenosis treated surgically at [facility] and referred here for rehab Has postop UTI with elevated Lactic acid and on IV antibiotics PMH DM had been Independent prior to this and living with his Girlfriend Medical Prognosis: good Anticipated Length of Stay: 12-13-16 Rehab Goals Modified Independent for adls and mobility skills Anticipated discharge destinat: Home with [facility] and girlfriend PRACHI AMADOR MD Dec 10, 2016 16:57
[2016-12-10] MEDS: ALFUZOSIN HCL 10 MG TAB (UROXATRAL) PO SCH (17:02)
[2016-12-10] MEDS: cefTRIAXone INJECTION 1,000 MG in NS (IVPB) 50 ML IV SCH (17:03)
[2016-12-10 17:46] VITALS: BP 154/73
[2016-12-10] MEDS: inSUlin DETERMIR 1 UNIT/0.01 ML (LEVEMIR) CHARGE PER UNIT SQ SCH (20:01)
[2016-12-10] MEDS: DOXEPIN 25 MG (SINEquan) CAP PO SCH (20:01)
[2016-12-11] MEDS: inSUlin ASPART (NovoLOG) 1 UNIT/0.01 ML (CHARGE PER UNIT) SC SCH ×2 (05:16→16:52)
[2016-12-11 05:28] VITALS: BP 136/76
[2016-12-11] MEDS: PANTOPRAZOLE 40 MG (PROTONIX) TAB PO SCH ×2 (06:17→16:40)
[2016-12-11] MEDS: CATHETER FLUSH 10 ML SYR IV SCH ×3 (06:17→21:09)
[2016-12-11] MEDS: metFORMIN 500 MG (GLUCOPHAGE) TAB PO SCH ×3 (06:17→16:40)
[2016-12-11 07:17] LABS: BASOPHILS % (AUTO) 0 % (0-10); EOSINOPHILS # (AUTO) 0.5 10^3/uL (0.0-0.3); EOSINOPHILS % (AUTO) 4 % (0-10); LYMPHOCYTES # (AUTO) 2.1 X 10^3 (1.0-4.0); LYMPHOCYTES % (AUTO) 16 % (12-44); MEAN CORPUSCULAR HEMOGLOBIN 31 PG (25-34); MEAN CORPUSCULAR HGB CONC 33 G/DL (32-36); MEAN CORPUSCULAR VOLUME 93 FL (80-99); MEAN PLATELET VOLUME 10.6 FL (7.4-10.4); MONOCYTES # (AUTO) 1.2 X 10^3 (0.0-1.0); MONOCYTES % (AUTO) 9 % (0-12); NEUTROPHILS # (AUTO) 8.9 X 10^3 (1.8-7.8); NEUTROPHILS % (AUTO) 70 % (42-75); PLATELET COUNT 265 10^3/uL (130-400); RED BLOOD COUNT 3.86 10^6/uL (4.35-5.85); RED CELL DISTRIBUTION WIDTH 12.3 % (10.0-14.5); WHITE BLOOD COUNT 12.7 10^3/uL (4.3-11.0)
[2016-12-11 07:38] LABS: ALANINE AMINOTRANSFERASE 84 U/L (0-55); ALBUMIN 3.7 GM/DL (3.2-4.5); ANION GAP 11 MMOL/L (5-14); ASPARTATE AMINO TRANSFERASE 62 U/L (5-34); BLOOD UREA NITROGEN 10 MG/DL (7-18); BUN/CREATININE RATIO 15; CALCIUM 9.3 MG/DL (8.5-10.1); CARBON DIOXIDE 22 MMOL/L (21-32); CHLORIDE 104 MMOL/L (98-107); CREATININE SERUM 0.67 MG/DL (0.60-1.30); GFR ESTIMATED > 60; GLUCOSE 90 MG/DL (70-105); POTASSIUM 3.5 MMOL/L (3.6-5.0); SODIUM 137 MMOL/L (135-145); TOTAL PROTEIN 7.7 GM/DL (6.4-8.2)
[2016-12-11] MEDS: METHOCARBAMOL 750 MG (ROBAXIN) TAB PO SCH ×4 (08:45→21:02)
[2016-12-11] MEDS: HYDROcodone/APAP 10 MG/325 MG (LORTAB) TAB PO PRN ×3 (08:45→23:17)
[2016-12-11] MEDS ORDERED: KCL 20 MEQ TAB (K-DUR) PO NR (09:00)
[2016-12-11] MEDS: MUPIROCIN 2% OINT 22 GM (BACTROBAN) TUBE TOP SCH ×2 (09:39→21:02)
--- NOTE | 2016-12-11 11:25 | Occupational Ther Daily Note ---
OT Current Status-Daily Note Subjective Pt seen in room, up in bed, agreeable to OT. No pain mentioned. Appearance Alert, cooperative Mental Status/Objective Functional [place] Measure 0=Not Assessed/NA 4=Minimal Assistance 1=Total Assistance 5=Supervision or Setup 2=Maximal Assistance 6=Modified [place] 3=Moderate Assistance 7=Complete [place] ADL-Treatment Pt was able to move from supine to sit EOB without assistance. He needed just a little help to stand from EOB and cues for hand placement. He walked CGA, FWW to bathroom and transferred on and off shower bench with min assist (lifting help), using grab bars. He walked back to sit EOB to don socks, with setup. Functional [place] Measure 0=Not Assessed/NA 4=Minimal Assistance 1=Total Assistance 5=Supervision or Setup 2=Maximal Assistance 6=Modified [place] 3=Moderate Assistance 7=Complete IndependenceIRFPAI Quality Coding Scale 6 Independent with activity with or without an assistive device 5 Patient requires set up or clean up by helper. Patient completes activity by themselves 4 Supervision or touching assist (CGA). [place] provide cues , steadying assist 3 The helper provides less than half the effort to complete the activity 2 The helper provides more than half the effort to complete the activity 1 Dependent. The helper does all the effort to complete an activity 7 Patient refused to complete or attempt activity 9 The patient did not perform the activity before the current illness or injury 88 Not attempted due to Medical conditions or safety concerns Grooming (FIM): 4 (CGA, FWW for balance, standing at sink to brush hair. Washed face and hands in shower) Bathing (FIM): 5 (Washed and dried all parts with setup, using long handled brush. Shower bench, grab bars, hand held shower. ) Upper Body (FIM): 5 (Setup) Lower Body Dressing (FIM): 4 (Sat EOB to don socks with no AD needed. Able to get socks off as well. Pt educ to sit to put pants onrather than stand to step into them. Min assist sit to stand and then CGA, FWW to pull pants up. ) Shower Transfer(FIM): 4 (Min assist to get off shower bench, using grab bars and FWW.) Other Treatment Once seated at EOB, pt was able to do 10 reps 5 different bilat UE exercises with red (medium resistance) theraband. Pt educ on the different exercises, with demonstration or verbal instructions. Return demo, occas further educ to do exercise correctly. To strengthen arms to help with transfers and standing/ ambulation during ADLs. Pt left up in bed, all needs met. Education OT Patient Education: Exercise program, Modified ADL techniques, Purpose of tx/ functional activities, Safety issues, Transfer techniques Teaching Recipient: Patient Teaching Methods: Demonstration, Discussion Response to Teaching: Verbalize Understanding, Return Demonstration, Reinforcement Needed OT Short Term Goals Short Term Goals Time Frame: Dec 16, 2016 Bathing(FIM): 4 Lower Body Dressing(FIM): 4 Toileting(FIM): 4 Toilet/Commode Transfer(FIM): 5 Shower Transfer(FIM): 4 Additional Short Term Goals: 1-Demonstrate ADL Tasks, 2-Verbalize Understanding , 3-ImproveStrength/Javier 1=Demonstrate adherence to instructed precautions during ADL tasks. 2=Patient will verbalize/demonstrate understanding of assistive devices/ modifications for ADL. 3=Patient will improve strength/tolerance for activity to enable patient to perform ADL's. OT Usp Goals Director Of Accounting Goals Time Frame: Dec 30, 2016 Eating (FIM): 7 Eating (QC): 6 Groomin Oral Hygiene (QC): 6 Bathing(FIM): 5 Shower/Bathe Self (QC): 5 Upper Body Dressing(FIM): 6 Upper Body Dressing (QC): 6 Lower Body Dressing(FIM): 5 Lower Body Dressing (QC): 5 On/Off Footwear (QC): 6 Toileting(FIM): 6 Toileting Hygiene (QC): 6 Toilet/Commode Transfer(FIM): 6 Toilet/Commode Transfer (QC): 6 Shower Transfer(FIM): 5 Additional Goals: 1-Demonstrate ADL Tasks, 2-Verbalize Understanding, 3- ImproveStrength/Javier 1=Demonstrate adherence to instructed precautions during ADL tasks. 2=Patient will verbalize/demonstrate understanding of assistive devices/ modifications for ADL. 3=Patient will improve strength/tolerance for activity to enable patient to perform ADL's. OT Education/Plan Problem List/Assessment Pt s/p lumbar surgery with decreased mobility, ADL functioning, strength, and activity tolerance. Pt to benefit from skilled OT intervention for ADL training , transfers, strengthening, and home safety education to maximize level of function and allow safe discharge home. Discharge Recommendations Plan/Recommendations: Continue POC Treatment Plan/Plan of Care Patient would benefit from OT for education, treatment and training to promote independence in ADL's, mobility, safety and/or upper extremity function for ADL' s. Plan of Care: ADL Retraining, Functional Mobility, Group Exercise/Act as Ind, UE Funct Exercise/Act Treatment Duration: Dec 30, 2016 Frequency: At least 5 of 7 days/Wk (IRF) Estimated Hrs Per Day: 1.5 hours per day Agreement: Yes Rehab Potential: Good Time/GCodes Start Time: 09:00 Stop Time: 10:00 Total Time Billed (hr/min): 60 Billed Treatment Time visit, 50 minutes ADL, 10 minutes exercise SHABNAM WOODSON OT Dec 11, 2016 11:25
--- NOTE | 2016-12-11 11:29 | Physical Therapy Daily Note ---
PT Daily Note-Current Subjective Pt is laying Supine in bed upon arrival. Pt agrees to PT. Pain Numeric Pain Scale: 5-Moderate Pain Location Body Site: Back Pain Description: Ache Mental Status Patient Orientation: Person, Place, Situation Transfers Functional [place] Measure 0=Not Assessed/NA 4=Minimal Assistance 1=Total Assistance 5=Supervision or Setup 2=Maximal Assistance 6=Modified [place] 3=Moderate Assistance 7=Complete IndependenceIRFPAI Quality Coding Scale 6 Independent with activity with or without an assistive device 5 Patient requires set up or clean up by helper. Patient completes activity by themselves 4 Supervision or touching assist (CGA). [place] provide cues , steadying assist 3 The helper provides less than half the effort to complete the activity 2 The helper provides more than half the effort to complete the activity 1 Dependent. The helper does all the effort to complete an activity 7 Patient refused to complete or attempt activity 9 The patient did not perform the activity before the current illness or injury 88 Not attempted due to Medical conditions or safety concerns Scootin Rollin Supine to/from Sit: 5 Sit to/from Stand: 5 Sit to Stand (QC): 5 Weight Bearing Weight Bearing Restriction: Full Weight Bearing Location Restriction: LE Bilateral Gait Training Does the Patient Walk?: Yes Distance (FIM): 3=150 ft Distance: 300' Walk 10 feet (QC): 5 Walk 50 ft with 2 Turns(QC): 5 Walk 150 ft (QC): 5 Gait Level of Assist: 5 Gait Persons Needed: 1 Gait Assistive Device: FWW Pt walks with normalized gait using FWW at close SBA. Pt fatigues and needs rest break after walk. Wheelchair Training Does the Pt Use a Wheelchair?: Yes Wheelchair Distance: 3=150 ft Distance: 150' Wheelchair Level of Assist: 5 Wheel 50 ft with 2 turns (QC): 5 Wheel 150 ft (QC): 5 Type of Wheelchair: Manual Pt only used [facility] due to distance from [facility] to outside ramp to practice for home. Exercises Seated Therapy Exercises: Ankle pumps, Hip flexion, Kicking activity Seated Reps: 15 Treatments Pt transferred from Supine to EOB to standing at SBA using FWW to stand. Pt used restroom previous to leaving room to practice ramp for home. Pt propelled WC as far as he could then PT took over. Pt ambulated ramp x2 before resting then ambulated again before resting in [facility]. Pt returned to room to rest and change bandage on back before OT. Pt resting in bed at end of tx with all needs left and OT to tx shortly. Assessment Current Status: Good Progress Pt fatigues after walking ramp and needs rest. Pt will have to monitor activity tolerance during tx and at home to safely complete activities so pt doesn't over do it. PT Short Term Goals Short Term Goals Time Frame: Dec 16, 2016 Gait (FIM): 5 Distance (FIM): 3=150 ft Gait Distance Comment: 250' Gait Assistive Device: FWW PT Mcc Goals Mcc Goals PT Marketing Research Intern Goals Time Frame: Dec 30, 2016 Transfers (B,C,W/C) (FIM): 5 Sit to Lying (QC): 6 Lying-Sitting on Side/Bed(QC): 6 Sit to Stand (QC): 4 Rollin Roll Left to Right (QC): 6 Car Transfer (QC): 4 Does the Patient Walk: Yes Gait (FIM): 6 Gait distance (FIM): 3=150 ft Distance: 500' Walk 10 feet (QC): 6 Walk 10ft-Uneven Surface(QC): 4 Walk 50ft with 2 Turns (QC): 6 Walk 150 ft (QC): 6 Gait Assistive Device: FWW Stairs (FIM): 4 # of Steps: 12 1 Step (curb) (QC): 4 4 Steps (QC): 4 Stairs Level Of Assist: 4 PT Plan Problem List Problem List: Activity Tolerance, Safety, Gait Treatment/Plan Treatment Plan: Continue Plan of Care Treatment Plan: Bed Mobility, Concurrent Therapy, Education, Functional Activity Javier, Functional Strength, Group Therapy, Gait, Safety, Therapeutic Exercise, Transfers Treatment Duration: Dec 30, 2016 Frequency: At least 5 of 7 days/Wk (IRF) Estimated Hrs Per Day: 1.5 hours per day Patient and/or Family Agrees t: Yes Safety Risks/Education Patient Education: Gait Training, Transfer Techniques, Correct Positioning, Safety Issues Teaching Recipient: Patient Teaching Methods: Discussion Response to Teaching: Verbalize Understanding Time/GCodes Time In: 805 Time Out: 905 Total Billed Treatment Time: 60 Total Billed Treatment visit, FA x2 (30m), [facility] (15m) & GT (15m) YOLANDA MENDOZA PTA Dec 11, 2016 11:29
--- NOTE | 2016-12-11 11:59 | Progress Note (SOAP) ---
Subjective Subjective/Events-last exam Afebrile last 24 hours. Reports still urinating without difficulty. No more chills/sweats. Review of Systems Date Seen by Provider: Dec 11, 2016 Time Seen by Provider: 10:30 Objective Exam Last Set of Vital Signs Vital Signs Date Time Temp Pulse Resp B/P (MAP) Pulse Ox O2 Delivery O2 Flow Rate FiO2 12/11/16 09:04 Room Air 12/11/16 05:28 98.7 102 18 136/76 96 Capillary Refill : Less Than 3 Seconds I&O Intake and Output 12/12/16 00:00 Intake Total 300 ml Balance 300 ml Intake Oral 300 ml # Voids 3 # Bowel Movements 2 General: Alert, No Acute Distress Lungs: Clear to Auscultation, Normal Air Movement Heart: Regular Rate, No Murmurs Abdomen: Normal Bowel Sounds, Soft Neuro: Normal Speech Psych/Mental Status: Mood NL Results/Procedures Lab Laboratory Tests 12/10/16 16:53: Glucometer 204H 12/10/16 21:12: Glucometer 191H 12/11/16 05:04: Glucometer 92 12/11/16 06:54: White Blood Count 12.7H, Red Blood Count 3.86L, Hemoglobin 11.8L, Hematocrit 36L , Mean Corpuscular Volume 93, Mean Corpuscular Hemoglobin 31, Mean Corpuscular Hemoglobin Concent 33, Red Cell Distribution Width 12.3, Platelet Count 265, Mean Platelet Volume 10.6H, Neutrophils (%) (Auto) 70, Lymphocytes (%) (Auto) 16 , Monocytes (%) (Auto) 9, Eosinophils (%) (Auto) 4, Basophils (%) (Auto) 0, Neutrophils # (Auto) 8.9H, Lymphocytes # (Auto) 2.1, Monocytes # (Auto) 1.2H, Eosinophils # (Auto) 0.5H, Basophils # (Auto) 0.0, Sodium Level 137, Potassium Level 3.5L, Chloride Level 104, Carbon Dioxide Level 22, Anion Gap 11, Blood Urea Nitrogen 10, Creatinine 0.67, Estimat Glomerular Filtration Rate > 60, BUN/ Creatinine Ratio 15, Glucose Level 90, Calcium Level 9.3, Total Bilirubin 1.0, Aspartate Amino Transf (AST/SGOT) 62H, Alanine Aminotransferase (ALT/SGPT) 84H, Alkaline Phosphatase 128, Total Protein 7.7, Albumin 3.7 Microbiology 9/19/17 Blood Culture - Preliminary, Resulted No growth 12/09/16 Urine Culture - Preliminary, Resulted Escherichia Coli Assessment/Plan Assessment/Plan Admission Dx s/p lumbar laminectomy and fusion DMII HLD Elevated LFTs Leukocytosis Urinary retention with indwelling schneider Plan s/p lumbar laminectomy and fusion- managed by inpatient rehab and [place] surgeon DMII- resume home medications, diabetic diet. Decreased home insulin to 40 units levemir given low blood sugar this am and reports he is eating less than usual HLD- hold home statin due to elevated LFTs Elevated LFTs- unknown etiology and apparently new, hepatitis panel negative and liver US unremarkable, monitor Leukocytosis- currently afebrile and with normal vital signs, possibly post- operative reaction, monitor Urinary retention with indwelling schneider- on alfuzosin, now with dysuria, check UA 12/10- removed catheter yesterday afternoon due to infection, able to urinate well so far, monitor closely UTI with sepsis- leukocytosis, fever and elevated lactic acid. Blood culture pending. Urine with gram negative ousmane. Continue ceftriaxone. Lactic acidosis resolved with fluid overnight. 12/11- fever resolved, urine culture with E coli sensitive to ceftriaxone. Will plan to finish 7 day course with cephalexin 500 mg BID on d/c if discharged before 7 days of therapy. Diagnosis/Problems: Clinical Quality Measures DVT/VTE Risk/Contraindication: Risk Factor Score Per Nursin RFS Level Per Nursing on Admit: 4+=Very High JULISSA VU MD Dec 11, 2016 11:59 am
--- NOTE | 2016-12-11 13:00 | Occupational Ther Daily Note ---
OT Current Status-Daily Note Subjective Pt seen in room, up in bed, agreeable to OT. No pain mentioned. Appearance Alert, cooperative Mental Status/Objective Functional [place] Measure 0=Not Assessed/NA 4=Minimal Assistance 1=Total Assistance 5=Supervision or Setup 2=Maximal Assistance 6=Modified [place] 3=Moderate Assistance 7=Complete [place] ADL-Treatment Functional [place] Measure 0=Not Assessed/NA 4=Minimal Assistance 1=Total Assistance 5=Supervision or Setup 2=Maximal Assistance 6=Modified [place] 3=Moderate Assistance 7=Complete IndependenceIRFPAI Quality Coding Scale 6 Independent with activity with or without an assistive device 5 Patient requires set up or clean up by helper. Patient completes activity by themselves 4 Supervision or touching assist (CGA). [place] provide cues , steadying assist 3 The helper provides less than half the effort to complete the activity 2 The helper provides more than half the effort to complete the activity 1 Dependent. The helper does all the effort to complete an activity 7 Patient refused to complete or attempt activity 9 The patient did not perform the activity before the current illness or injury 88 Not attempted due to Medical conditions or safety concerns Other Treatment Pt needed min assist and two trials to stand from sitting EOB, FWW. He found a technique that worked well and tried it later, getting up out of chair with arms with only CGA, FWW. Pt walked to gym with CGA, FWW. Once seated, did 12 minutes bilat UE exercise with arm bike set at 15W resistance, working at steady pace and with no c/o pain. Strengthening to help with transfers and ADLs. Pt walked back to room, CGA, FWW. Got on and off tall toilet with close SBA, using grab bars and FWW. Pt managed clothing and hygiene. Walked back to bed with CGA, FWW and was left sitting EOB with , all needs met. Education OT Patient Education: Exercise program, Purpose of tx/functional activities, Safety issues, Transfer techniques Teaching Recipient: Patient Teaching Methods: Discussion Response to Teaching: Verbalize Understanding, Return Demonstration OT Short Term Goals Short Term Goals Time Frame: Dec 16, 2016 Bathing(FIM): 4 Lower Body Dressing(FIM): 4 Toileting(FIM): 4 Toilet/Commode Transfer(FIM): 5 Shower Transfer(FIM): 4 Additional Short Term Goals: 1-Demonstrate ADL Tasks, 2-Verbalize Understanding , 3-ImproveStrength/Javier 1=Demonstrate adherence to instructed precautions during ADL tasks. 2=Patient will verbalize/demonstrate understanding of assistive devices/ modifications for ADL. 3=Patient will improve strength/tolerance for activity to enable patient to perform ADL's. OT Fci Goals Fci Goals Time Frame: Dec 30, 2016 Eating (FIM): 7 Eating (QC): 6 Groomin Oral Hygiene (QC): 6 Bathing(FIM): 5 Shower/Bathe Self (QC): 5 Upper Body Dressing(FIM): 6 Upper Body Dressing (QC): 6 Lower Body Dressing(FIM): 5 Lower Body Dressing (QC): 5 On/Off Footwear (QC): 6 Toileting(FIM): 6 Toileting Hygiene (QC): 6 Toilet/Commode Transfer(FIM): 6 Toilet/Commode Transfer (QC): 6 Shower Transfer(FIM): 5 Additional Goals: 1-Demonstrate ADL Tasks, 2-Verbalize Understanding, 3- ImproveStrength/Javier 1=Demonstrate adherence to instructed precautions during ADL tasks. 2=Patient will verbalize/demonstrate understanding of assistive devices/ modifications for ADL. 3=Patient will improve strength/tolerance for activity to enable patient to perform ADL's. OT Education/Plan Problem List/Assessment Pt s/p lumbar surgery with decreased mobility, ADL functioning, strength, and activity tolerance. Pt to benefit from skilled OT intervention for ADL training , transfers, strengthening, and home safety education to maximize level of function and allow safe discharge home. Discharge Recommendations Plan/Recommendations: Continue POC Treatment Plan/Plan of Care Patient would benefit from OT for education, treatment and training to promote independence in ADL's, mobility, safety and/or upper extremity function for ADL' s. Plan of Care: ADL Retraining, Functional Mobility, Group Exercise/Act as Ind, UE Funct Exercise/Act Treatment Duration: Dec 30, 2016 Frequency: At least 5 of 7 days/Wk (IRF) Estimated Hrs Per Day: 1.5 hours per day Agreement: Yes Rehab Potential: Good Time/GCodes Start Time: 11:38 Stop Time: 12:08 Total Time Billed (hr/min): 30 Billed Treatment Time visit, 25 minutes exercise, 5 minutes ADL SHABNAM WOODSON OT Dec 11, 2016 13:00
--- NOTE | 2016-12-11 14:55 | Physical Therapy Daily Note ---
PT Daily Note-Current Subjective Pt ambulating back from restroom upon arrival. Pt agrees to PT. Pain Location Body Site: Back Pain Description: Ache Comment: Pt doesn't rate but does report. Mental Status Patient Orientation: Person, Place, Situation Transfers Functional [place] Measure 0=Not Assessed/NA 4=Minimal Assistance 1=Total Assistance 5=Supervision or Setup 2=Maximal Assistance 6=Modified [place] 3=Moderate Assistance 7=Complete IndependenceIRFPAI Quality Coding Scale 6 Independent with activity with or without an assistive device 5 Patient requires set up or clean up by helper. Patient completes activity by themselves 4 Supervision or touching assist (CGA). [place] provide cues , steadying assist 3 The helper provides less than half the effort to complete the activity 2 The helper provides more than half the effort to complete the activity 1 Dependent. The helper does all the effort to complete an activity 7 Patient refused to complete or attempt activity 9 The patient did not perform the activity before the current illness or injury 88 Not attempted due to Medical conditions or safety concerns Scootin Sit to/from Stand: 5 Sit to Stand (QC): 5 Weight Bearing Weight Bearing Restriction: Full Weight Bearing Location Restriction: LE Bilateral Gait Training Does the Patient Walk?: Yes Distance (FIM): 3=150 ft Distance: 250' Walk 10 feet (QC): 5 Walk 50 ft with 2 Turns(QC): 5 Walk 150 ft (QC): 5 Gait Level of Assist: 5 Gait Persons Needed: 1 Gait Assistive Device: FWW Pt walks with normalized gait but does fatigue easy and needs rest break. Wheelchair Training Does the Pt Use a Wheelchair?: No Exercises Standing: Hip Abduction, Hamstring curls, Heel/toe raises, Marching Standing Reps: 10 Treatments Pt ambulates using FWW at SBA to Therapy Gym. Pt completes Standing Ex at // bars. Pt returns to room to rest at EOB for Nurse to apply new bandage. Pt is resting at EOB with & Nurse present at end of tx with all needs met. Assessment Current Status: Good Progress Pt fatigues easy and needs rest breaks. PT Short Term Goals Short Term Goals Time Frame: Dec 16, 2016 Gait (FIM): 5 Distance (FIM): 3=150 ft Gait Distance Comment: 250' Gait Assistive Device: FWW Wheelchair Distance: 150' PT Reports Analysis Manager Goals [facility] Goals PT Reports Analysis Manager Goals Time Frame: Dec 30, 2016 Transfers (B,C,W/C) (FIM): 5 Sit to Lying (QC): 6 Lying-Sitting on Side/Bed(QC): 6 Sit to Stand (QC): 4 Rollin Roll Left to Right (QC): 6 Car Transfer (QC): 4 Does the Patient Walk: Yes Gait (FIM): 6 Gait distance (FIM): 3=150 ft Distance: 500' Walk 10 feet (QC): 6 Walk 10ft-Uneven Surface(QC): 4 Walk 50ft with 2 Turns (QC): 6 Walk 150 ft (QC): 6 Gait Assistive Device: FWW Stairs (FIM): 4 # of Steps: 12 1 Step (curb) (QC): 4 4 Steps (QC): 4 Stairs Level Of Assist: 4 PT Plan Problem List Problem List: Activity Tolerance, Safety, Gait Treatment/Plan Treatment Plan: Continue Plan of Care Treatment Plan: Bed Mobility, Concurrent Therapy, Education, Functional Activity Javier, Functional Strength, Group Therapy, Gait, Safety, Therapeutic Exercise, Transfers Treatment Duration: Dec 30, 2016 Frequency: At least 5 of 7 days/Wk (IRF) Estimated Hrs Per Day: 1.5 hours per day Patient and/or Family Agrees t: Yes Safety Risks/Education Patient Education: Gait Training, Transfer Techniques, Correct Positioning, Safety Issues Teaching Recipient: Patient Teaching Methods: Discussion Response to Teaching: Verbalize Understanding Time/GCodes Time In: 1300 Time Out: 1330 Total Billed Treatment Time: 30 Total Billed Treatment visit, GT (15m) & EX (15m) YOLANDA MENDOZA TOXICOLOGY SUPERVISOR Dec 11, 2016 14:55
[2016-12-11] MEDS: cefTRIAXone INJECTION 1,000 MG in NS (IVPB) 50 ML IV SCH (16:41)
[2016-12-11] MEDS: ALFUZOSIN HCL 10 MG TAB (UROXATRAL) PO SCH (16:41)
[2016-12-11 18:00] VITALS: BP 173/85
--- NOTE | 2016-12-11 18:49 | PM & R (SOAP) Progress Note ---
Subjective Time Seen by Provider: 07:45 Subjective/Events-last exam Patient was seen in his room this AM Patient SBA for transfers Patient remains on IV antibiotics for UTI CBC and accucheks noted Appreciate DR Sheikh NOTE. Objective Exam Last Set of Vital Signs Vital Signs Date Time Temp Pulse Resp B/P (MAP) Pulse Ox O2 Delivery O2 Flow Rate FiO2 12/11/16 18:00 99.4 106 18 173/85 96 Room Air Capillary Refill : Less Than 3 Seconds I&O Intake and Output 12/12/16 00:00 Intake Total 2600 ml Output Total 1860 ml Balance 740 ml Intake Oral 2500 ml IV Total 100 ml Output Urine Total 1860 ml # Voids 3 # Bowel Movements 3 General: Alert, No Acute Distress HEENT: Atraumatic, PERRLA, EOMI, Mucous Memb Moist/[place] Neck: Supple, No JVD Lungs: Clear to Auscultation, Normal Air Movement Heart: Regular Rate, No Murmurs Abdomen: Normal Bowel Sounds, Soft Extremities: No Edema Neuro: Normal Speech Psych/Mental Status: Mood NL Results Lab Laboratory Tests 12/09/16 05:26: Glucometer 46*L 12/09/16 05:52: Glucometer 56*L 12/09/16 06:27: Glucometer 75 12/09/16 06:52: White Blood Count 11.3H, Red Blood Count 3.78L, Hemoglobin 11.7L, Hematocrit 35L , Mean Corpuscular Volume 92, Mean Corpuscular Hemoglobin 31, Mean Corpuscular Hemoglobin Concent 34, Red Cell Distribution Width 12.3, Platelet Count 243, Mean Platelet Volume 10.5H, Neutrophils (%) (Auto) 74, Lymphocytes (%) (Auto) 12 , Monocytes (%) (Auto) 12, Eosinophils (%) (Auto) 2, Basophils (%) (Auto) 0, Neutrophils # (Auto) 8.4H, Lymphocytes # (Auto) 1.4, Monocytes # (Auto) 1.3H, Eosinophils # (Auto) 0.2, Basophils # (Auto) 0.0, Neutrophils % (Manual) 59, Lymphocytes % (Manual) 19, Monocytes % (Manual) 13, Eosinophils % (Manual) 2, Basophils % (Manual) 0, Metamyelocytes % , Myelocytes % 1, Band Neutrophils 6, Blood Morphology Comment NORMAL, Sodium Level 134L, Potassium Level 3.4L, Chloride Level 99, Carbon Dioxide Level 23, Anion Gap 12, Blood Urea Nitrogen 11 , Creatinine 0.70, Estimat Glomerular Filtration Rate > 60, BUN/Creatinine Ratio 16, Glucose Level 103, Calcium Level 9.5, Total Bilirubin 1.1H, Aspartate Amino Transf (AST/SGOT) 73H, Alanine Aminotransferase (ALT/SGPT) 94H, Alkaline Phosphatase 151H, Total Protein 7.4, Albumin 3.7 12/09/16 10:57: Glucometer 144H 12/09/16 11:52: Urine Color YELLOW, Urine Clarity VERY CLOUDYH, Urine pH 5, Urine Specific [place] 1.020, Urine Protein 3+H, Urine Glucose (UA) 3+H, Urine Ketones 1+H, Urine Nitrite POSITIVEH, Urine Bilirubin 1+H, Urine Urobilinogen 4H, Urine Leukocyte Esterase 3+H, Urine RBC (Auto) 5+H, Urine RBC 10-25H, Urine WBC >100H , Urine Squamous Epithelial Cells RARE, Urine Crystals NONE, Urine Bacteria LARGEH, Urine Casts NONE, Urine Mucus MODERATEH, Urine Culture Indicated YES 12/09/16 12:03: Hepatitis A IgM Antibody Non-Reactive, Hepatitis B Surface Antigen Non-Reactive , Hepatitis B Core IgM Antibody Non-Reactive, Hepatitis C Antibody Non-Reactive 12/09/16 16:03: Glucometer 191H 12/09/16 17:25: White Blood Count 13.1H, Red Blood Count 3.67L, Hemoglobin 11.3L, Hematocrit 34L , Mean Corpuscular Volume 93, Mean Corpuscular Hemoglobin 31, Mean Corpuscular Hemoglobin Concent 33, Red Cell Distribution Width 12.5, Platelet Count 264, Mean Platelet Volume 10.9H, Neutrophils (%) (Auto) 71, Lymphocytes (%) (Auto) 15 , Monocytes (%) (Auto) 12, Eosinophils (%) (Auto) 2, Basophils (%) (Auto) 0, Neutrophils # (Auto) 9.3H, Lymphocytes # (Auto) 1.9, Monocytes # (Auto) 1.6H, Eosinophils # (Auto) 0.2, Basophils # (Auto) 0.0, Lactic Acid Level 3.16*H 12/09/16 19:40: Lactic Acid Level 2.27*H 12/09/16 22:20: Lactic Acid Level 2.17*H 12/10/16 00:42: White Blood Count 10.6, Red Blood Count 3.40L, Hemoglobin 10.5L, Hematocrit 32L , Mean Corpuscular Volume 93, Mean Corpuscular Hemoglobin 31, Mean Corpuscular Hemoglobin Concent 33, Red Cell Distribution Width 12.4, Platelet Count 235, Mean Platelet Volume 10.0, Neutrophils (%) (Auto) 64, Lymphocytes (%) (Auto) 19 , Monocytes (%) (Auto) 14H, Eosinophils (%) (Auto) 3, Basophils (%) (Auto) 0, Neutrophils # (Auto) 6.8, Lymphocytes # (Auto) 2.0, Monocytes # (Auto) 1.4H, Eosinophils # (Auto) 0.3, Basophils # (Auto) 0.0, Lactic Acid Level 2.80*H, Sodium Level 137, Potassium Level 3.8, Chloride Level 106, Carbon Dioxide Level 22, Anion Gap 9, Blood Urea Nitrogen 12, Creatinine 0.74, Estimat Glomerular Filtration Rate > 60, BUN/Creatinine Ratio 16, Glucose Level 206H, Calcium Level 8.4L, Total Bilirubin 0.8, Aspartate Amino Transf (AST/SGOT) 62H, Alanine Aminotransferase (ALT/SGPT) 83H, Alkaline Phosphatase 132, Total Protein 6.4, Albumin 3.1L 12/10/16 05:50: Glucometer 91 12/10/16 05:52: Lactic Acid Level 1.45 12/10/16 16:53: Glucometer 204H 12/10/16 21:12: Glucometer 191H 12/11/16 05:04: Glucometer 92 12/11/16 06:54: White Blood Count 12.7H, Red Blood Count 3.86L, Hemoglobin 11.8L, Hematocrit 36L , Mean Corpuscular Volume 93, Mean Corpuscular Hemoglobin 31, Mean Corpuscular Hemoglobin Concent 33, Red Cell Distribution Width 12.3, Platelet Count 265, Mean Platelet Volume 10.6H, Neutrophils (%) (Auto) 70, Lymphocytes (%) (Auto) 16 , Monocytes (%) (Auto) 9, Eosinophils (%) (Auto) 4, Basophils (%) (Auto) 0, Neutrophils # (Auto) 8.9H, Lymphocytes # (Auto) 2.1, Monocytes # (Auto) 1.2H, Eosinophils # (Auto) 0.5H, Basophils # (Auto) 0.0, Sodium Level 137, Potassium Level 3.5L, Chloride Level 104, Carbon Dioxide Level 22, Anion Gap 11, Blood Urea Nitrogen 10, Creatinine 0.67, Estimat Glomerular Filtration Rate > 60, BUN/ Creatinine Ratio 15, Glucose Level 90, Calcium Level 9.3, Total Bilirubin 1.0, Aspartate Amino Transf (AST/SGOT) 62H, Alanine Aminotransferase (ALT/SGPT) 84H, Alkaline Phosphatase 128, Total Protein 7.7, Albumin 3.7 12/11/16 16:45: Glucometer 202H Microbiology 12/09/16 Blood Culture - Preliminary, Resulted No growth 12/09/16 Urine Culture - Final, Complete Escherichia Coli Assessment/Plan Assessment S/P lumbar spine surgery for lumbar spine stenosis OSH work related UTI on iv antibiotics Elevated LFTS Hepatitis panel and liver U/S ordered-negative IDDM with episode of hypoglycemia HS insulin adjusted Borderline Hypokalemia-one dose of K replacement ordered-done. Plan Continue PT/OT ST HAS SIGNED OFF after assessment F/U with DR Lorenzana et al re Abnormal labs and DM management and UTI/ fever-done Team Conference held yesterday 12/10/16-See report for full functional update and POC and ELOS Discharge set tentatively for Thursday12/13/16. PRACHI AMADOR MD Dec 11, 2016 18:49
[2016-12-11] MEDS: DOXEPIN 25 MG (SINEquan) CAP PO SCH (21:02)
[2016-12-11] MEDS: inSUlin DETERMIR 1 UNIT/0.01 ML (LEVEMIR) CHARGE PER UNIT SQ SCH (21:02)
[2016-12-12 05:15] VITALS: BP 157/76
[2016-12-12 05:40] LABS: MEAN PLATELET VOLUME 10.2 FL (7.4-10.4); RED BLOOD COUNT 3.53 10^6/uL (4.35-5.85); RED CELL DISTRIBUTION WIDTH 12.3 % (10.0-14.5); WHITE BLOOD COUNT 13.5 10^3/uL (4.3-11.0)
[2016-12-12 05:56] LABS: ALANINE AMINOTRANSFERASE 77 U/L (0-55); ALBUMIN 3.3 GM/DL (3.2-4.5); ANION GAP 8 MMOL/L (5-14); ASPARTATE AMINO TRANSFERASE 55 U/L (5-34); BILIRUBIN,TOTAL 0.8 MG/DL (0.1-1.0); BLOOD UREA NITROGEN 8 MG/DL (7-18); BUN/CREATININE RATIO 13; CALCIUM 8.8 MG/DL (8.5-10.1); CARBON DIOXIDE 24 MMOL/L (21-32); CHLORIDE 106 MMOL/L (98-107); CREATININE SERUM 0.63 MG/DL (0.60-1.30); GFR ESTIMATED > 60; GLUCOSE 102 MG/DL (70-105); POTASSIUM 3.8 MMOL/L (3.6-5.0); SODIUM 138 MMOL/L (135-145); TOTAL PROTEIN 6.9 GM/DL (6.4-8.2)
[2016-12-12] MEDS: CATHETER FLUSH 10 ML SYR IV SCH (06:20)
[2016-12-12] MEDS: inSUlin ASPART (NovoLOG) 1 UNIT/0.01 ML (CHARGE PER UNIT) SC SCH (06:21)
[2016-12-12] MEDS: PANTOPRAZOLE 40 MG (PROTONIX) TAB PO SCH (06:21)
[2016-12-12] MEDS: metFORMIN 500 MG (GLUCOPHAGE) TAB PO SCH ×2 (06:21→12:07)
[2016-12-12] MEDS: MUPIROCIN 2% OINT 22 GM (BACTROBAN) TUBE TOP SCH (08:17)
[2016-12-12] MEDS: METHOCARBAMOL 750 MG (ROBAXIN) TAB PO SCH ×2 (08:17→12:07)
--- NOTE | 2016-12-12 09:04 | Physical Therapy Daily Note ---
PT Daily Note-Current Subjective Pt. states he is going home bright and early tomorrow morning. Pt. declined stairs as he states his Dr told him ascending stairs was restricted Pain Numeric Pain Scale: 0-No Pain Mental Status Patient Orientation: Normal For Age Transfers Functional [place] Measure 0=Not Assessed/NA 4=Minimal Assistance 1=Total Assistance 5=Supervision or Setup 2=Maximal Assistance 6=Modified [place] 3=Moderate Assistance 7=Complete IndependenceIRFPAI Quality Coding Scale 6 Independent with activity with or without an assistive device 5 Patient requires set up or clean up by helper. Patient completes activity by themselves 4 Supervision or touching assist (CGA). [place] provide cues , steadying assist 3 The helper provides less than half the effort to complete the activity 2 The helper provides more than half the effort to complete the activity 1 Dependent. The helper does all the effort to complete an activity 7 Patient refused to complete or attempt activity 9 The patient did not perform the activity before the current illness or injury 88 Not attempted due to Medical conditions or safety concerns Transfers (B, C, W/C) (FIM): 6 Scootin Rollin Roll Left to Right (QC): 6 Supine to/from Sit: 6 Sit to/from Stand: 6 Sit to Lying (QC): 6 Sit to Stand (QC): 6 Chair/Akn-cv-Bdobk Xfer(QC): 6 Bed to/from Chair: 6 moves a little slowly and carefully but Mod I Gait Training Does the Patient Walk?: Yes Gait (FIM): 6 Distance (FIM): 3=150 ft (250x3) Walk 10 feet (QC): 6 Walk 50 ft with 2 Turns(QC): 6 Walk 150 ft (QC): 6 Walking 10ft/uneven surface-QC: 6 Gait Level of Assist: 6 Gait Persons Needed: 0 Gait Assistive Device: FWW cued pt. for slightly wider DAVID brandon at turns but no LOB etc Stair Training pt. declines stairs but is Mod I on ramp which he has at home Exercises Supine Ex: Bridging, Ankle pumps, Quad Set, Rolling, Glut sets, Heel Slides, Short Arc Quads, Scooting, Hip abd/add Supine Reps: 12 Seated Therapy Exercises: Ankle pumps, Sit to stand, Long arc quads, Hip flexion Seated Reps: 12 Treatments pt. toileted indep and also did fig 8s as well as side step left and right and retro gait all mod I no LOB Assessment Current Status: Good Progress meets goals PT Short Term Goals Short Term Goals Time Frame: Dec 16, 2016 Gait (FIM): 5 Distance (FIM): 3=150 ft Gait Distance Comment: 250' Gait Assistive Device: FWW Wheelchair Distance: 150' PT Half-Way Goals Half-Way Goals PT Half-Way Goals Time Frame: Dec 30, 2016 Transfers (B,C,W/C) (FIM): 5 Sit to Lying (QC): 6 Lying-Sitting on Side/Bed(QC): 6 Sit to Stand (QC): 4 Rollin Roll Left to Right (QC): 6 Car Transfer (QC): 4 Does the Patient Walk: Yes Gait (FIM): 6 Gait distance (FIM): 3=150 ft Distance: 500' Walk 10 feet (QC): 6 Walk 10ft-Uneven Surface(QC): 4 Walk 50ft with 2 Turns (QC): 6 Walk 150 ft (QC): 6 Gait Assistive Device: FWW Stairs (FIM): 4 # of Steps: 12 1 Step (curb) (QC): 4 4 Steps (QC): 4 Stairs Level Of Assist: 4 PT Plan Treatment/Plan Treatment Plan: Continue Plan of Care Treatment Plan: Bed Mobility, Concurrent Therapy, Education, Functional Activity Javier, Functional Strength, Group Therapy, Gait, Safety, Therapeutic Exercise, Transfers Treatment Duration: Dec 30, 2016 Frequency: At least 5 of 7 days/Wk (IRF) Estimated Hrs Per Day: 1.5 hours per day Patient and/or Family Agrees t: Yes Safety Risks/Education Patient Education: Gait Training, Transfer Techniques, Reviewed Precautions, Correct Positioning, Disease Process, Safety Issues Teaching Recipient: Patient Teaching Methods: Demonstration, Discussion Response to Teaching: Verbalize Understanding, Return Demonstration, Reinforcement Needed Time/GCodes Time In: 800 Time Out: 900 Total Billed Treatment Time: 60 Total Billed Treatment 1,EX20m,GT25m,FA15m G Codes Necessary: CRISTIAN Stern MULTI SENSOR OPERATOR Dec 12, 2016 09:04
--- NOTE | 2016-12-12 09:16 | PM & R (SOAP) Progress Note ---
Subjective Time Seen by Provider: 08:15 Subjective/Events-last exam Patient was seen on unit this AM Patient Modified Independent for transfers.Discussed case with RN Patient set for discharge tomorrow [facility] has switched patient over to po antibiotics for completion of treatment of UTI. Objective Exam Last Set of Vital Signs Vital Signs Date Time Temp Pulse Resp B/P (MAP) Pulse Ox O2 Delivery O2 Flow Rate FiO2 12/12/16 05:15 98.2 94 20 157/76 95 Room Air Capillary Refill : Less Than 3 Seconds I&O Intake and Output 12/13/16 00:00 Intake Total 1000 ml Balance 1000 ml Intake Oral 1000 ml # Voids 4 General: Alert, No Acute Distress HEENT: Atraumatic, PERRLA, EOMI, Mucous Memb Moist/[place] Neck: Supple, No JVD Lungs: Clear to Auscultation, Normal Air Movement Heart: Regular Rate, No Murmurs Abdomen: Normal Bowel Sounds, Soft Extremities: No Edema Neuro: Normal Speech Psych/Mental Status: Mood NL Results Lab Laboratory Tests 12/09/16 10:57: Glucometer 144H 12/09/16 11:52: Urine Color YELLOW, Urine Clarity VERY CLOUDYH, Urine pH 5, Urine Specific [place] 1.020, Urine Protein 3+H, Urine Glucose (UA) 3+H, Urine Ketones 1+H, Urine Nitrite POSITIVEH, Urine Bilirubin 1+H, Urine Urobilinogen 4H, Urine Leukocyte Esterase 3+H, Urine RBC (Auto) 5+H, Urine RBC 10-25H, Urine WBC >100H , Urine Squamous Epithelial Cells RARE, Urine Crystals NONE, Urine Bacteria LARGEH, Urine Casts NONE, Urine Mucus MODERATEH, Urine Culture Indicated YES 12/09/16 12:03: Hepatitis A IgM Antibody Non-Reactive, Hepatitis B Surface Antigen Non-Reactive , Hepatitis B Core IgM Antibody Non-Reactive, Hepatitis C Antibody Non-Reactive 12/09/16 16:03: Glucometer 191H 12/09/16 17:25: White Blood Count 13.1H, Red Blood Count 3.67L, Hemoglobin 11.3L, Hematocrit 34L , Mean Corpuscular Volume 93, Mean Corpuscular Hemoglobin 31, Mean Corpuscular Hemoglobin Concent 33, Red Cell Distribution Width 12.5, Platelet Count 264, Mean Platelet Volume 10.9H, Neutrophils (%) (Auto) 71, Lymphocytes (%) (Auto) 15 , Monocytes (%) (Auto) 12, Eosinophils (%) (Auto) 2, Basophils (%) (Auto) 0, Neutrophils # (Auto) 9.3H, Lymphocytes # (Auto) 1.9, Monocytes # (Auto) 1.6H, Eosinophils # (Auto) 0.2, Basophils # (Auto) 0.0, Lactic Acid Level 3.16*H 12/09/16 19:40: Lactic Acid Level 2.27*H 12/09/16 22:20: Lactic Acid Level 2.17*H 12/10/16 00:42: White Blood Count 10.6, Red Blood Count 3.40L, Hemoglobin 10.5L, Hematocrit 32L , Mean Corpuscular Volume 93, Mean Corpuscular Hemoglobin 31, Mean Corpuscular Hemoglobin Concent 33, Red Cell Distribution Width 12.4, Platelet Count 235, Mean Platelet Volume 10.0, Neutrophils (%) (Auto) 64, Lymphocytes (%) (Auto) 19 , Monocytes (%) (Auto) 14H, Eosinophils (%) (Auto) 3, Basophils (%) (Auto) 0, Neutrophils # (Auto) 6.8, Lymphocytes # (Auto) 2.0, Monocytes # (Auto) 1.4H, Eosinophils # (Auto) 0.3, Basophils # (Auto) 0.0, Lactic Acid Level 2.80*H, Sodium Level 137, Potassium Level 3.8, Chloride Level 106, Carbon Dioxide Level 22, Anion Gap 9, Blood Urea Nitrogen 12, Creatinine 0.74, Estimat Glomerular Filtration Rate > 60, BUN/Creatinine Ratio 16, Glucose Level 206H, Calcium Level 8.4L, Total Bilirubin 0.8, Aspartate Amino Transf (AST/SGOT) 62H, Alanine Aminotransferase (ALT/SGPT) 83H, Alkaline Phosphatase 132, Total Protein 6.4, Albumin 3.1L 12/10/16 05:50: Glucometer 91 12/10/16 05:52: Lactic Acid Level 1.45 12/10/16 16:53: Glucometer 204H 12/10/16 21:12: Glucometer 191H 12/11/16 05:04: Glucometer 92 12/11/16 06:54: White Blood Count 12.7H, Red Blood Count 3.86L, Hemoglobin 11.8L, Hematocrit 36L , Mean Corpuscular Volume 93, Mean Corpuscular Hemoglobin 31, Mean Corpuscular Hemoglobin Concent 33, Red Cell Distribution Width 12.3, Platelet Count 265, Mean Platelet Volume 10.6H, Neutrophils (%) (Auto) 70, Lymphocytes (%) (Auto) 16 , Monocytes (%) (Auto) 9, Eosinophils (%) (Auto) 4, Basophils (%) (Auto) 0, Neutrophils # (Auto) 8.9H, Lymphocytes # (Auto) 2.1, Monocytes # (Auto) 1.2H, Eosinophils # (Auto) 0.5H, Basophils # (Auto) 0.0, Sodium Level 137, Potassium Level 3.5L, Chloride Level 104, Carbon Dioxide Level 22, Anion Gap 11, Blood Urea Nitrogen 10, Creatinine 0.67, Estimat Glomerular Filtration Rate > 60, BUN/ Creatinine Ratio 15, Glucose Level 90, Calcium Level 9.3, Total Bilirubin 1.0, Aspartate Amino Transf (AST/SGOT) 62H, Alanine Aminotransferase (ALT/SGPT) 84H, Alkaline Phosphatase 128, Total Protein 7.7, Albumin 3.7 12/11/16 16:45: Glucometer 202H 12/12/16 05:15: White Blood Count 13.5H, Red Blood Count 3.53L, Hemoglobin 10.7L, Hematocrit 33L , Mean Corpuscular Volume 93, Mean Corpuscular Hemoglobin 30, Mean Corpuscular Hemoglobin Concent 33, Red Cell Distribution Width 12.3, Platelet Count 266, Mean Platelet Volume 10.2, Sodium Level 138, Potassium Level 3.8, Chloride Level 106, Carbon Dioxide Level 24, Anion Gap 8, Blood Urea Nitrogen 8, Creatinine 0.63, Estimat Glomerular Filtration Rate > 60, BUN/Creatinine Ratio 13, Glucose Level 102, Calcium Level 8.8, Total Bilirubin 0.8, Aspartate Amino Transf (AST/SGOT) 55H, Alanine Aminotransferase (ALT/SGPT) 77H, Alkaline Phosphatase 119, Total Protein 6.9, Albumin 3.3 12/12/16 05:24: Glucometer 98 Microbiology 12/09/16 Blood Culture - Preliminary, Resulted No growth 12/09/16 Urine Culture - Final, Complete Escherichia Coli Assessment/Plan Assessment S/P lumbar spine surgery for lumbar spine stenosis OSH work related UTI on iv antibiotics Elevated LFTS Hepatitis panel and liver U/S ordered-negative IDDM with episode of hypoglycemia HS insulin adjusted Borderline Hypokalemia-one dose of K replacement ordered-done. Plan Continue PT/OT ST HAS SIGNED OFF after assessment F/U with DR Lorenzana et al re Abnormal labs and DM management and UTI/ fever-done Team Conference held 12/10/16-See report for full functional update and POC and ELOS Discharge remains set for tomorrow Thursday12/13/16. See orders. PRACHI AMADOR MD Dec 12, 2016 09:16
[2016-12-12] MEDS ORDERED: METH750T3 PO (09:31)
[2016-12-12] MEDS ORDERED: DOXE25CA46 PO (09:31)
[2016-12-12] MEDS ORDERED: MUPI22OI2 TOP (09:31)
[2016-12-12] MEDS ORDERED: INSU100V5 SQ (09:31)
[2016-12-12] MEDS ORDERED: HYDR-3820 PO (09:31)
[2016-12-12] MEDS ORDERED: CEPH250C PO (09:31)
[2016-12-12] MEDS ORDERED: PANT40TA3 PO (09:31)
[2016-12-12] MEDS ORDERED: ALFU10TA11 PO (09:31)
--- NOTE | 2016-12-12 12:46 | Occupational Ther Daily Note ---
OT Current Status-Daily Note Subjective Pt sitting EOB, agrees to treatment. Pt reports 2/10 back pain. Pt eager for discharge. Mental Status/Objective Functional [place] Measure 0=Not Assessed/NA 4=Minimal Assistance 1=Total Assistance 5=Supervision or Setup 2=Maximal Assistance 6=Modified [place] 3=Moderate Assistance 7=Complete [place] ADL-Treatment Pt sit to stand from low surface with SBA. Pt retrieved clothing from closet with SBA using FWW for balance. Gait to restroom with FWW. Transfer to walk in shower with SBA and cues for safety. Pt doffed clothing with SBA. Seated bathing completed with SBA. Supervision for standing balance while washing/ drying buttocks. RN present to change dressing on back. Don pullover shirt without assistance. Pt donned shorts using electric range assembler with SBA for balance during pant hike. Pt able to don bilateral socks with set up. Pt combed hair with modified independence. Pt states he has already completed oral care without assistance earlier this morning. Pt demonstrates ability to perform transfer to [facility] over toilet with SBA. Functional [place] Measure 0=Not Assessed/NA 4=Minimal Assistance 1=Total Assistance 5=Supervision or Setup 2=Maximal Assistance 6=Modified [place] 3=Moderate Assistance 7=Complete IndependenceIRFPAI Quality Coding Scale 6 Independent with activity with or without an assistive device 5 Patient requires set up or clean up by helper. Patient completes activity by themselves 4 Supervision or touching assist (CGA). [place] provide cues , steadying assist 3 The helper provides less than half the effort to complete the activity 2 The helper provides more than half the effort to complete the activity 1 Dependent. The helper does all the effort to complete an activity 7 Patient refused to complete or attempt activity 9 The patient did not perform the activity before the current illness or injury 88 Not attempted due to Medical conditions or safety concerns Eating (FIM): 7 (Pt reports feeding self, cutting food, and managing containers without assistance) Eating (QC): 6 Grooming (FIM): 6 Oral Hygiene (QC): 6 (Per pt report) Bathing (FIM): 5 Shower/Bathe Self (QC): 4 Upper Body (FIM): 5 Upper Body Dressing (QC): 4 Lower Body Dressing (FIM): 5 Lower Body Dressing (QC): 4 On/Off Footwear (QC): 5 Toileting (FIM): 5 Toileting Hygiene (QC): 4 Toilet/Commode Transfer (FIM): 5 Toilet Transfer (QC): 4 Shower Transfer(FIM): 5 Other Treatment Gait to therapy gym with FWW. Pt completed arm bike x10 minutes to promote increased strength and activity tolerance needed for functional task completion. Pt completed activity with minimal resistance and steady pace. No rest breaks required. Pt returned to room and was in bed with needs met after session. Pt states he feels ready to return home and family will be able to assist if needed. No questions at this time. OT Short Term Goals Short Term Goals Time Frame: Dec 16, 2016 Bathing(FIM): 4 Lower Body Dressing(FIM): 4 Toileting(FIM): 4 Toilet/Commode Transfer(FIM): 5 Shower Transfer(FIM): 4 Additional Short Term Goals: 1-Demonstrate ADL Tasks, 2-Verbalize Understanding , 3-ImproveStrength/Javier 1=Demonstrate adherence to instructed precautions during ADL tasks. 2=Patient will verbalize/demonstrate understanding of assistive devices/ modifications for ADL. 3=Patient will improve strength/tolerance for activity to enable patient to perform ADL's. OT Welder Helper Goals Snf Goals Time Frame: Dec 30, 2016 Eating (FIM): 7 (met) Eating (QC): 6 (6-MET) Groomin (met 12/12/16) Oral Hygiene (QC): 6 (6-MET) Bathing(FIM): 5 (met 12/12/16) Shower/Bathe Self (QC): 5 (4-NOT MET) Upper Body Dressing(FIM): 6 (not met) Upper Body Dressing (QC): 6 (4- NOT MET) Lower Body Dressing(FIM): 5 (met 12/12/16) Lower Body Dressing (QC): 5 (4-NOT MET) On/Off Footwear (QC): 6 (5-NOT MET) Toileting(FIM): 6 (not met) Toileting Hygiene (QC): 6 (4-NOT MET) Toilet/Commode Transfer(FIM): 6 (not met) Toilet/Commode Transfer (QC): 6 (4-NOT MET) Shower Transfer(FIM): 5 (met 12/12/16) Additional Goals: 1-Demonstrate ADL Tasks, 2-Verbalize Understanding, 3- ImproveStrength/Javier 1=Demonstrate adherence to instructed precautions during ADL tasks. 2=Patient will verbalize/demonstrate understanding of assistive devices/ modifications for ADL. 3=Patient will improve strength/tolerance for activity to enable patient to perform ADL's. OT Education/Plan Problem List/Assessment Pt s/p lumbar surgery with decreased mobility, ADL functioning, strength, and activity tolerance. Pt to benefit from skilled OT intervention for ADL training , transfers, strengthening, and home safety education to maximize level of function and allow safe discharge home. Discharge Recommendations Plan/Recommendations: Continue POC Treatment Plan/Plan of Care Patient would benefit from OT for education, treatment and training to promote independence in ADL's, mobility, safety and/or upper extremity function for ADL' s. Plan of Care: ADL Retraining, Functional Mobility, Group Exercise/Act as Ind, UE Funct Exercise/Act Treatment Duration: Dec 30, 2016 Frequency: At least 5 of 7 days/Wk (IRF) Estimated Hrs Per Day: 1.5 hours per day Agreement: Yes Rehab Potential: Good Time/GCodes Start Time: 09:00 Stop Time: 10:00 Total Time Billed (hr/min): 60 Billed Treatment Time 1 visit, ADLx3(45minutes), EX(15minutes) AMAYA KHAN OT Dec 12, 2016 12:46
[2016-12-12 13:36] VITALS: BP 134/77
--- NOTE | 2016-12-12 15:53 | Therapy Team Discharge Summary ---
Therapy Discharge Summary Discharge Recommendations Date of Discharge Dec 12, 2016 at 13:36 Therapy D/C Recommendations: Home w/ Family Support Physical Therapy Patient came to rehab following lumbar surgery. Upon admission patient performed bed mobility with SBA and transfers with min/modA, ambulated 150' with a rolling walker with CGA, and went up and down 1 step using a rolling walker with CGA. Patient has been performing bed mobility and transfer training , balance and endurance training, functional strengthening, stair training, gait training, and education. He has made good progress but has not met his ambulation goal due to distance and his step goal because he refuses to do them because he has a ramp. Now, patient performs bed mobility and transfers with mod I, ambulates 250' with a rolling walker with mod I (including 50' with at least 2 turns of 90 degrees and 10' over an uneven surface). Patient was discharged from this facility today and will be discharged from PT at this time. PT Nursing Home Goals Nursing Home Goals PT Award Machine Operator Goals Time Frame: Dec 30, 2016 Transfers (B,C,W/C) (FIM): 5 Roll Left to Right (QC): 6 Sit to Lying (QC): 6 Lying-Sitting on Side/Bed(QC): 6 Sit to Stand (QC): 4 Car Transfer (QC): 4 Does the Patient Walk: Yes Gait (FIM): 6 Gait distance (FIM): 3=150 ft Distance: 500' Walk 10 feet (QC): 6 Walk 10ft-Uneven Surface(QC): 4 Walk 50ft with 2 Turns (QC): 6 Walk 150 ft (QC): 6 Gait Assistive Device: FWW Stairs (FIM): 4 # of Steps: 12 1 Step (curb) (QC): 4 4 Steps (QC): 4 Stairs Level Of Assist: 4 OT Nursing Home Goals Award Machine Operator Goals Time Frame: Dec 30, 2016 Eating (FIM): 7 (met) Eating (QC): 6 (6-MET) Oral Hygiene (QC): 6 (6-MET) Grooming(FIM): 6 (met 12/12/16) Bathing(FIM): 5 (met 12/12/16) Shower/Bathe Self (QC): 5 (4-NOT MET) Upper Body Dressing(FIM): 6 (not met) Upper Body Dressing (QC): 6 (4- NOT MET) Lower Body Dressing(FIM): 5 (met 12/12/16) Lower Body Dressing (QC): 5 (4-NOT MET) On/Off Footwear (QC): 6 (5-NOT MET) Toileting(FIM): 6 (not met) Toileting Hygiene (QC): 6 (4-NOT MET) Toilet/Commode Transfer(FIM): 6 (not met) Toilet/Commode Transfer (QC): 6 (4-NOT MET) Shower Transfer(FIM): 5 (met 12/12/16) Additional Goals: 1-Demonstrate ADL Tasks, 2-Verbalize Understanding, 3- ImproveStrength/Javier 1=Demonstrate adherence to instructed precautions during ADL tasks. 2=Patient will verbalize/demonstrate understanding of assistive devices/ modifications for ADL. 3=Patient will improve strength/tolerance for activity to enable patient to perform ADL's. OG LEA PT Dec 12, 2016 15:53
[2016-12-13] MEDS ORDERED: CEPHALEXIN 250 MG (KEFLEX) CAP PO SCH ×2 (08:00)
--- NOTE | 2016-12-16 16:00 | Therapy Team Discharge Summary ---
Therapy Discharge Summary Discharge Recommendations Date of Discharge Dec 12, 2016 at 13:36 Therapy D/C Recommendations: Home w/ Family Support Occupational Therapy Decreased Activ Tolerance, Decreased UE Strength, Dependent Transfers, Impaired Self-Care Skills Speech-Language Pathology Pt admitted to ARU following lumbar surgery. On admission pt required moderate assistance for bathing, lower body dressing, and shower transfer and minimal assistance for toilet transfers. Skilled OT intervention focused on ADL training , transfers, strengthening, adaptive equipment training, and home safety education. Pt progressed with therapy and by discharge pt is completing eating independently, grooming with modified independence and all other ADLs and transfers with SBA/supervision. Pt met goals for eating, grooming, bathing, lower body dressing, and shower transfer, but did not meet other goals. Pt discharged home with spouse. D/C ARU OT. PT Residential Goals Residential Goals PT Residential Goals Time Frame: Dec 30, 2016 Transfers (B,C,W/C) (FIM): 5 Roll Left to Right (QC): 6 Sit to Lying (QC): 6 Lying-Sitting on Side/Bed(QC): 6 Sit to Stand (QC): 4 Car Transfer (QC): 4 Does the Patient Walk: Yes Gait (FIM): 6 Gait distance (FIM): 3=150 ft Distance: 500' Walk 10 feet (QC): 6 Walk 10ft-Uneven Surface(QC): 4 Walk 50ft with 2 Turns (QC): 6 Walk 150 ft (QC): 6 Gait Assistive Device: FWW Stairs (FIM): 4 # of Steps: 12 1 Step (curb) (QC): 4 4 Steps (QC): 4 Stairs Level Of Assist: 4 OT Peoplesoft Programmer Goals Peoplesoft Programmer Goals Time Frame: Dec 30, 2016 Eating (FIM): 7 (met) Eating (QC): 6 (6-MET) Oral Hygiene (QC): 6 (6-MET) Grooming(FIM): 6 (met 12/12/16) Bathing(FIM): 5 (met 12/12/16) Shower/Bathe Self (QC): 5 (4-NOT MET) Upper Body Dressing(FIM): 6 (not met) Upper Body Dressing (QC): 6 (4- NOT MET) Lower Body Dressing(FIM): 5 (met 12/12/16) Lower Body Dressing (QC): 5 (4-NOT MET) On/Off Footwear (QC): 6 (5-NOT MET) Toileting(FIM): 6 (not met) Toileting Hygiene (QC): 6 (4-NOT MET) Toilet/Commode Transfer(FIM): 6 (not met) Toilet/Commode Transfer (QC): 6 (4-NOT MET) Shower Transfer(FIM): 5 (met 12/12/16) Additional Goals: 1-Demonstrate ADL Tasks, 2-Verbalize Understanding, 3- ImproveStrength/Javier 1=Demonstrate adherence to instructed precautions during ADL tasks. 2=Patient will verbalize/demonstrate understanding of assistive devices/ modifications for ADL. 3=Patient will improve strength/tolerance for activity to enable patient to perform ADL's. AMAYA KHAN OT Dec 16, 2016 16:00
--- NOTE | 2016-12-24 12:16 | DISCHARGE SUMMARY ---
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 He was then referred to inpatient rehabilitation unit for ongoing therapies at [facility] as he lives in [place], [place] in a one story home, and he reports that this numbness is largely improved. He requires assistance for his ADLs and mobility skills. He requires hydrocodone APAP for pain control. He is a diabetic and on insulin as well as metformin. He is on Protonix for GI prophylaxis, Robaxin for muscle spasms, Sinequan for insomnia and depression and he had been independent prior to this but having increasing symptoms as outlined above. PAST MEDICAL HISTORY: Diabetes mellitus and chronic back pain. MEDICAL COURSE: The patient was followed by [facility], the patient's local health care provider and Dr. Ramachandran while on rehab unit. He was afebrile during his stay. His pulse was 88 on 12/12, respirations 18, blood pressure 134/77, O2 sat 96% on room air. CBC on 12/12/2016 showed WBC 13.5, H and H 10.7/33, platelet count 266,000. The patient was noted to have some increased liver function tests and ultrasound of the liver was ordered by [facility] and it was negative. The patient's AST and ALT were 55/77 on 12/12/2016. Gradually decreasing from 62 and 84 on 12/11. Total bilirubin within normal limits as well as alkaline phosphatase, albumin was 3.3, total protein 6.9 on 12/12/2016, improved from 3.16 and 6.4 on 12/10/2016. The patient had mildly low serum sodium 134 on 12/09/2016, normalized to 138 on 12/12/2016. Potassium was 3.4 on 12/09/2016, replacement provided, normalized to 3.8 on 12/12/2016. Lactic acid was 2.27 on 12/09/2016. UA was positive on 12/09/2016. Hepatitis screen was negative. Glucometer readings from 12/10 to 12/12 varied between 91 and 202. Blood cultures times two on 12/15/2016 showed no growth. Urine culture showed E. coli on 12/11/2016. The patient did have a fever of 101.9 on 12/09/2016. The patient was found to have a UTI and this was treated with ceftriaxone IV and this was then changed over to Keflex to complete the course upon discharge on an outpatient basis. The patient was on carb consistent diet. REHABILITATION COURSE: The patient progressed well with his therapies despite his various medical issues as outlined above. He was assessed by speech therapy upon admission and found to be cognitively intact and they signed off. Upon admission OT notes the patient required mod assist for bathing, lower body dressing and shower transfers and min assist for toilet transfers. The patient progressed well with therapies and by discharge was completing eating independently grooming with modified independence and all other ADLs and transfers and standby assist to supervision. The patient is being discharged to home with spouse. PT notes upon admission, the patient performed bed mobility with standby assist, transfers with minimum mod assist, ambulated 150 feet with a wheeled walker with contact guard. He made good progress and he did not want to do step goals as he has a ramp leading into his home. Upon discharge, he is modified independent with bed mobility and transfers and could ambulate 250 feet with a wheeled walker with modified independence. DISCHARGE INSTRUCTIONS: The patient is discharged to home with home health care. The patient will follow up with his [facility] care provider as well as his spine surgeon in [place]. Accu-Cheks as per home regimen. Continue carbs consistent diet. DISCHARGE MEDICATIONS: Alfuzosin 10 mg p.o. daily, Keflex 500 mg p.o. b.i.d., doxepin 100 mg p.o. at bedtime, hydrocodone APAP 10/325 1 tablet p.o. q.4h. p.r.n. moderate pain, Levemir insulin 40 units subcu each day at bedtime, methocarbamol 750 mg p.o. q.i.d., Bactroban topically b.i.d. to affected area, metformin 500 mg p.o. t.i.d., Protonix 40 mg p.o. each day at bedtime, simvastatin 20 mg p.o. q. evening. DISCHARGE DIAGNOSES: 1. Rehabilitation ambulatory dysfunction secondary to lumbar spinal stenosis status post fusion with weakness in legs, numbness in legs, improving postoperatively. 2. Postop urinary retention, improved with medication. 3. Sepsis treated. 4. Urinary tract infection, treated. 5. DMI 2 with hyperglycemia. 6. Insomnia improved with meds. 7. Depression improved with medications. 8. Elevated LFTs with negative hepatitis screen, negative ultrasound of the liver, gradually improving. 9. Hyperlipidemia, on statin. 10. Gastroesophageal reflux disease, on medication. 11. Long-term use insulin. 12. Long-term use hypoglycemics. CONDITION AT DISCHARGE: Improved and stable. PROGNOSIS: Rehab prognosis appears good for continued improvement at home and return to independent living with some assistance from home health care and the patient's spouse as needed. Job ID: [id number] DocumentID: [id number] Dictated Date: 12/23/2016 15:05:25 Plumber Cub Date: 12/24/2016 12:15:15 Dictated By: PRACHI RAMACHANDRAN MD MTDD
== END 2016-12-12 13:36 | disposition home health service (06) | DRG 949 ==
LOC: EEVIPCON 16:45 → EDPENDDISTM 12-12 14:00 → EDPENDDISDT 12-12 14:00
PROVIDERS: ADMIT Physical Medicine & Rehabilitation; ATTEND Physical Medicine & Rehabilitation
DX: Z48.89 Encounter for other specified surgical aftercare (principal); R29.898 Other symptoms and signs involving the musculoskeletal system; R20.0 Anesthesia of skin; Z98.1 Arthrodesis status; R33.9 Retention of urine, unspecified; A41.9 Sepsis, unspecified organism; N39.0 Urinary tract infection, site not specified; E11.649 Type 2 diabetes mellitus with hypoglycemia without coma; G47.00 Insomnia, unspecified; F32.9 Major depressive disorder, single episode, unspecified; R79.89 Other specified abnormal findings of blood chemistry; E78.5 Hyperlipidemia, unspecified; K21.9 Gastro-esophageal reflux disease without esophagitis; Z79.4 Long term (current) use of insulin; Z79.84 Long term (current) use of oral hypoglycemic drugs; B96.20 Unspecified Escherichia coli [E. coli] as the cause of diseases classified elsewhere
CPT/HCPCS: 36415; 76705; 80053; 80074; 81000; 82962; 83605; 85007; 85025; 85027; 87040; 87077; 87088; 87186

== ENCOUNTER → 2019-11-09 | Outpatient (CLI) | payer MEDICARE, OTHER ==
[~2019-11-09] MED LIST: ACHYD1T PO; ALFU10TA12 PO; CEPH250C PO; DOXE150C PO; DOXE25CA46 PO; INSU100I29 SQ; INSU100V5 SQ; METF-397 PO; METH750T3 PO; MUPI22OI2 TOP; PANT40TA3 PO; SIMV20TA26 PO; TRM50T PO
--- NOTE | 2019-11-11 08:12 | Diagnostic Imaging Report ---
EXAMINATION: MRI right foot without contrast on 11/09/2019. INDICATION: Diabetic ulcer on plantar side of the 5th toe. TECHNIQUE: Multiplanar, multisequence imaging of the right foot was performed without intravenous contrast. A marker was placed at the area of concern along the plantar aspect of the right foot. FINDINGS: The marker corresponds to the plantar aspect of the right foot at the level of the distal 4th metatarsal. The marrow signal intensity identified within the visualized metatarsals appears normal. In addition, the marrow signal intensity of the proximal phalanges of all five toes appears normal. The middle and distal phalanges are somewhat limited in evaluation. There is soft tissue thickening and edema noted along the plantar aspect of the distal 5th metatarsal and MTP joint; however, the underlying osseous structures are unremarkable for bony destructive changes or marrow changes. No definite MRI findings to suggest osteomyelitis are seen. There is no fluid collection or abscess identified. IMPRESSION: Soft tissue thickening and edema at the level of the distal 5th metatarsal and MTP joint. No definite findings to suggest osteomyelitis or soft tissue abscess are identified. Dictated by: Dictated on workstation # [id number]
== END ==
LOC: RAD 08:28
PROVIDERS: ATTEND Surgery
DX: E11.621 Type 2 diabetes mellitus with foot ulcer (principal); R60.0 Localized edema

== ENCOUNTER → 2020-03-25 | Outpatient (CLI) | payer OTHER, MEDICARE ==
[~2020-03-25] MED LIST changes: -PANT40TA3 PO; +PANT40TA52 PO
== END ==
LOC: GIR 15:51
PROVIDERS: ATTEND Nurse Practitioner Family
DX: Z20.828 Contact with and (suspected) exposure to other viral communicable diseases (principal)
CPT/HCPCS: 87635

== ENCOUNTER → 2020-12-14 | Outpatient (CLI) | payer MEDICARE, OTHER ==
[~2020-12-14] MED LIST changes: +METH-732 PO; -METH750T3 PO
--- NOTE | 2020-12-14 19:00 | Diagnostic Imaging Report ---
PROCEDURE: MRI right lower extremity without contrast. TECHNIQUE: Multiplanar, multisequence non contrast-enhanced MRI of the right lower extremity was accomplished. INDICATION: Ulcer along the right foot, BB placed at site of concern. Symptoms x5 months. Diabetic. EXAMINATION: Right lower extremity MRI without contrast 12/14/2020 COMPARISON: 11/09/2019 FINDINGS: There is a BB along the slightly lateral plantar aspect of the foot overlying the level of the 5th metatarsal head. Underlying the marker is diffuse T2 hyperintensity within the subcutaneous soft tissues. T2 hyperintensity is also seen within the 5th metatarsal head and throughout the base of the proximal 5th phalanx. There are no adjacent drainable fluid collections. Soft tissue abnormality is noted along the of dorsal soft tissues overlying the 5th metatarsal phalangeal joint as well with skin thickening and diffuse T2 hyperintensity likely on the basis of edema with cellulitis not excluded. The remaining osseous structures demonstrate normal signal intensity. There are mild degenerative changes at the 1st metatarsophalangeal joint. Visualized tendons intact. IMPRESSION: 1. Abnormal signal intensity within the 5th metatarsal head and adjacent base of the 5th proximal phalanx. Given the overlying soft tissue abnormality, findings are suspicious for osteomyelitis. A fracture in the region not excluded and clinical correlation and perhaps correlative radiographs may be useful. Surrounding soft tissue edema versus cellulitis noted with no drainable abscess appreciated. Dictated by: Dictated on workstation # [id number]
== END ==
LOC: RAD 13:15
PROVIDERS: ATTEND Nurse Practitioner
DX: E11.621 Type 2 diabetes mellitus with foot ulcer (principal); L97.512 Non-pressure chronic ulcer of other part of right foot with fat layer exposed

== ENCOUNTER 2020-12-25 08:24 | Outpatient (CLI) | payer MEDICARE ==
[~2020-12-25] VITALS: Ht 180.3 cm; Wt 93.5 kg
[2020-12-25] MEDS ORDERED: GEMF600T88 PO (11:12)
[2020-12-25] MEDS ORDERED: PANT40TA2 PO (11:12)
[2020-12-25] MEDS ORDERED: SIMV40TA25 PO (11:12)
[2020-12-25] MEDS ORDERED: INSU100I29 SQ (11:12)
[2020-12-25] MEDS ORDERED: INSU100V16 SQ (11:12)
[2020-12-27] MEDS ORDERED: DOCU-143 PO (13:08)
[2020-12-27] MEDS ORDERED: ACHD5005 PO (13:08)
== END 2020-12-25 11:15 | disposition home or self-care (01) ==
LOC: PREOP 08:24
PROVIDERS: ATTEND Surgery
DX: Z01.818 Encounter for other preprocedural examination (principal)

== ENCOUNTER 2020-12-27 10:10 | Day surgery (SDC) | payer MEDICARE ==
[~2020-12-27] VITALS: Ht 180.3 cm; Wt 93.5 kg
[2020-12-27] VITALS (11 sets, daily range): BP systolic 129–158; BP diastolic 76–83
[~2020-12-27 10:10] MED LIST changes: +GEMF600T88 PO; +INSU100V16 SQ; +PANT40TA2 PO; +SIMV40TA25 PO
[2020-12-27] MEDS ORDERED: ceFAZolin INJECTION 1,000 MG in WATER (STERILE) FOR INJECTION 10 ML IV ONE (10:45)
[2020-12-27] MEDS ORDERED: LACTATED RINGERS 1,000 ML IV PRN (10:45)
[2020-12-27] MEDS ORDERED: LIDOCAINE/EPI 1%-1:100,000 (XYLOCAINE) 20ML ONE (11:08)
[2020-12-27] MEDS ORDERED: LIDOCAINE PF 2% 5 ML (XYLOCAINE) VIAL ONE (11:55)
[2020-12-27] MEDS ORDERED: fentaNYL INJ 100 MCG/2 ML AMP ONE (11:55)
[2020-12-27] MEDS ORDERED: proPOfol 200 MG/20 ML (DIPRIVAN) VIAL IV ONE (11:55)
[2020-12-27] MEDS ORDERED: MIDAZOLAM 2 MG/2 ML (VERSED) VIAL ONE (11:55)
--- NOTE | 2020-12-27 12:05 | Progress Note-Pre Operative ---
Pre-Operative Progress Note H&P Reviewed The H&P was reviewed, patient examined and no changes noted. Date Seen by Provider: Dec 27, 2020 Time Seen by Provider: 11:57 Date H&P Reviewed: Dec 27, 2020 Time H&P Reviewed: 12:05 Pre-Operative Diagnosis: osteomyelitis right foot 5th metatarsal head JOE PANDEY DO Dec 27, 2020 12:05
[2020-12-27] MEDS ORDERED: LIDOCAINE 1% INJ 20 ML 20 ML VIAL ONE (12:22)
[2020-12-27] MEDS ORDERED: PHENYLEPHRINE 100 MCG/ML 10 ML (ANESTHESIA) SYR ONE (12:49)
--- NOTE | 2020-12-27 13:06 | Progress Note-Post Operative ---
Post-Operative Progess Note Surgeon (s)/Field Care Coordinator (s) Surgeon JOE PANDEY DO Field Care Coordinator: na Pre-Operative Diagnosis osteomyelitis right foot 5th metatarsal head Post-Operative Diagnosis same Procedure & Operative Findings Date of Procedure 12/27/20 Procedure Performed/Findings right foot block, amputation of right 5th toe and partial amputation of right 5th metatarsal Anesthesia Type general Estimated Blood Loss Estimated blood loss (mL): minimal Specimens/Packing Specimens Removed right 5th toe, partial 5th metatarsal, culture JOE PANDEY DO Dec 27, 2020 13:06
[2020-12-27] MEDS ORDERED: ACHD5005 PO (13:08)
[2020-12-27] MEDS ORDERED: DOCU-143 PO (13:08)
--- NOTE | 2020-12-27 13:10 | Discharge Inst-Simple/Standard ---
Discharge Inst-Standard Discharge Medications New, Converted or Re-Newed RX: Transmitted to Pharmacy Patient Instructions/Follow Up Plan of Care/Instructions/FU: Monisha 2 weeks. Monisha nurse in office tomorrow morning for dressing change and packing education. Activity as Tolerated: No Discharge Diet: Regular Diet Other Inst to Patient Follow up Appt: Make appointment for 2 week. Monisha nurse tomorrow for packing change. Instructions: No lifting greater than 10 pounds. No strenuous activity. May shower in 24 hours, no tub bath or soaking. Use incentive spirometer at home as directed. No Smoking Skin/Wound Care: Irrigate and pack wound daily and as needed. Keep clean and dry. Symptoms to Report: Appetite Changes, Extremity Discoloration, Numbness/Tingling, Swelling Increased, Bleeding Excessive, Eyesight Changes, Pain Increased, Urine Color Change, Constipation(Persistent), Fever over 101 degree F, Pain/Pressure in chest, Urinating Difficulty, Cough Up/Vomit Blood, Heart Beat Irreg/Pounding, Pain/Pressure in jaw, Vaginal Bleeding Increase, Cramps in feet or legs, Lightheadedness, Pain/Pressure in shoulder, Diarrhea(Persistent), Memory Changes Suddenly, Questions/Concerns, Weight gain consecutive days, Dizziness/Fainting, Nausea/Vomiting, Shortness of Breath, Weight gain over 2 pounds If questions or concerns contact your physician Or seek help at emergency department. JOE PANDEY DO Dec 27, 2020 13:10
[2020-12-27] MEDS ORDERED: ONDANSETRON 4 MG/2 ML (SDV) Z0FRAN IVP PRN (13:15)
[2020-12-27] MEDS ORDERED: HYDROmorphone 2 MG/ML VIAL (DILAUDID) IV ONE (13:15)
--- NOTE | 2020-12-27 14:44 | Anesthesia-General Post-Op ---
General Patient Condition Mental Status/LOC: Same as Preop Cardiovascular: Satisfactory Nausea/Vomiting: Absent Respiratory: Satisfactory Pain: Controlled Complications: Absent Post Op Complications Complications None Follow Up Care/Instructions Patient Instructions None needed. Anesthesia/Patient Condition Patient Condition Patient is doing well, no complaints, stable vital signs, no apparent adverse anesthesia problems. No complications reported per nursing. [place] [facility]: Yes JAMES ORTEGA CRNA Dec 27, 2020 14:44
--- NOTE | 2020-12-27 19:28 | OPERATIVE REPORT ---
DATE OF SERVICE: 12/27/2020 PREOPERATIVE DIAGNOSIS: Osteomyelitis, right foot fifth metatarsal head. POSTOPERATIVE DIAGNOSIS: Osteomyelitis, right foot fifth metatarsal head. PROCEDURES PERFORMED: Right foot block, amputation of right fifth toe and partial amputation of the fifth metatarsal bone. SURGEON: Joe Bearden DO. ANESTHESIA: General with right foot block. ESTIMATED BLOOD LOSS: Minimal. COMPLICATIONS: None. INDICATIONS FOR PROCEDURE: The patient is a 65-year-old male with MRI consistent with osteomyelitis of the right fifth metatarsal head. 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 The patient was discussed the risks and benefits of procedure and wished to proceed. Consent was signed in the chart. DESCRIPTION OF PROCEDURE: The patient was taken to the operating suite and was prepped and draped in a sterile fashion. Timeout was performed. A right foot block was performed hitting the medial and lateral aspects of the ankle just posterior to the tibia and fibula, medial and lateral injection sites. Then, local anesthetic was fanned across the dorsal aspect of the foot for adequate nerve coverage. A 15 blade scalpel was used to make an incision around the right fifth toe. Cautery was used to start dissecting down through the subcutaneous tissues and the metatarsal head was exposed and the right toe was then amputated. Tissues were examined with metatarsal head, chronic changes of infection were present, which were directed towards the area of ulceration. Therefore, it was decided to excise the ulcer within the wound. Cautery was used to dissect around the ulcer and moving more lateral along the side of the foot. The metatarsal bone was exposed. This was then cut proximal to the area of appearance of osteomyelitis. This was then also bevelled slightly for walking purposes and the bone was then filed smooth. The bone was then cultured and then copious amounts of irrigation was used, which hemostasis was achieved. The wound was then packed in a sterile fashion and washed. After it was washed and dried, the wound was then packed and bandaged in a sterile fashion. The patient tolerated the procedure well without any complications and taken to recovery room in stable condition. CC: [facility] - requested, unable to deliver. Job ID: [id number] DocumentID: [id number] Dictated Date: 12/27/2020 14:54:30 Senior Cyber Intelligence Analyst Date: 12/27/2020 19:27:39 Dictated By: JOE BEARDEN DO
== END 2020-12-27 15:00 | disposition home or self-care (01) ==
LOC: SDC 10:10
PROVIDERS: ATTEND Surgery
DX: M86.9 Osteomyelitis, unspecified (principal); K21.9 Gastro-esophageal reflux disease without esophagitis; E11.621 Type 2 diabetes mellitus with foot ulcer; L97.419 Non-pressure chronic ulcer of right heel and midfoot with unspecified severity; I10 Essential (primary) hypertension; Z79.899 Other long term (current) drug therapy; Z79.4 Long term (current) use of insulin; Z79.84 Long term (current) use of oral hypoglycemic drugs
CPT/HCPCS: 82947; 87070; 87075; 87081; 87205; 88305; 88311